=== PATIENT | female | born 1945 | race Caucasian/White ===

== ENCOUNTER → 2016-09-21 | Outpatient (CLI) | payer MEDICARE, OTHER ==
[2016-09-21 16:44] LABS: ABSOLUTE BASOPHILS # (AUTO) 0.1 10^3/uL (0.0-0.2); ABSOLUTE EOSINOPHILS # (AUTO) 0.4 10^3/uL (0.0-0.6); ABSOLUTE LYMPHOCYTES (AUTO) 2.6 10^3/uL (0.5-4.7); ABSOLUTE MONOCYTES (AUTO) 1.1 10^3/uL (0.1-1.4); ABSOLUTE NEUT (AUTO) 8.6 10^3/uL (1.7-8.2); BASOPHILS % (AUTO) 0.8 % (0-2); EOSINOPHILS % (AUTO) 3.4 % (0-6); HEMATOCRIT 40.7 % (36.0-47.0); HEMOGLOBIN 13.6 g/dL (12.0-15.5); HGB HCT DIFFERENCE 0.1; LYMPHOCYTES % (AUTO) 20.2 % (13-45); MEAN CORPUSCULAR HEMOGLOBIN 29.4 pg (27.0-33.4); MEAN CORPUSCULAR HGB CONC 33.4 g/dL (32.0-36.0); MEAN CORPUSCULAR VOLUME 88 fl (80-97); MONOCYTES % (AUTO) 8.3 % (3-13); RED BLOOD COUNT 4.63 10^6/uL (3.72-5.28); RED CELL DISTRIBUTION WIDTH 13.6 % (11.5-14.0); SEGMENTED NEUTROPHILS % (AUTO) 67.3 % (42-78); WHITE BLOOD COUNT 12.8 10^3/uL (4.0-10.5)
== END ==
LOC: OD 16:01
PROVIDERS: ATTEND Surgery
DX: K62.5 Hemorrhage of anus and rectum (principal)
CPT/HCPCS: 36415; 85025

== ENCOUNTER → 2016-10-07 | Outpatient (CLI) | payer MEDICARE, OTHER ==
[2016-10-07 13:10] LABS: ALANINE AMINOTRANSFERASE 19 U/L (9-52); ALBUMIN 3.7 g/dL (3.5-5.0); ALKALINE PHOSPHATASE 104 U/L (38-126); ANION GAP 7 (5-19); ASPARTATE AMINO TRANSFERASE 18 U/L (14-36); BILIRUBIN,TOTAL 0.6 mg/dL (0.2-1.3); BLOOD UREA NITROGEN 17 mg/dL (7-20); CALCIUM 10.8 mg/dL (8.4-10.2); CARBON DIOXIDE 27 mmol/L (22-30); CHLORIDE 105 mmol/L (98-107); CREATININE RESULT 0.66 mg/dL (0.52-1.25); GLUCOSE 84 mg/dL (75-110); POTASSIUM 4.4 mmol/L (3.6-5.0); SODIUM 139.1 mmol/L (137-145); TOTAL PROTEIN 6.5 g/dL (6.3-8.2)
[2016-10-07 13:39] LABS: CARCINOEMBRYONIC ANTIGEN 4.4 ng/mL (<3.0)
== END ==
LOC: OD 12:08
PROVIDERS: ATTEND Surgery
DX: K63.89 Other specified diseases of intestine (principal); Z85.3 Personal history of malignant neoplasm of breast
CPT/HCPCS: 36415; 80053; 82378

== ENCOUNTER → 2016-10-09 | Outpatient (CLI) | payer MEDICARE, OTHER | LOC: RAD 14:15 | PROVIDERS: ATTEND Surgery | DX: K63.89 Other specified diseases of intestine (principal); Z85.3 Personal history of malignant neoplasm of breast | CPT/HCPCS: 71020; 74177; 82565 ==

== ENCOUNTER 2016-10-20 07:13 | Inpatient (IN) | payer MEDICARE, OTHER ==
--- NOTE | 2016-10-19 18:09 | EKG REPORT ---
SEVERITY:- OTHERWISE NORMAL ECG - SINUS RHYTHM LEFT AXIS DEVIATION : Confirmed by: Darnell Pelayo MD 19-Oct-2016 18:08:39
[~2016-10-20 07:13] MED LIST: NORMAL SALINE 1000 ML 1,000 ML IV PRN; RINGERS SOLUTION,LACTATED 1,000 ML IV PRN
[2016-10-20] MEDS ORDERED: BUPIVACAINE HCL 0.25 % INJ/PF (2.5 MG/1 ML) 30 ML VIAL ONE (07:49)
[2016-10-20] MEDS ORDERED: METOCLOPRAMIDE HCL INJ/PF 10 MG/2 ML SDV ONE (09:58)
[2016-10-20] MEDS ORDERED: ONDANSETRON HCL INJ/PF 4 MG/2 ML SDV ONE (09:58)
[2016-10-20] MEDS ORDERED: ROCURONIUM BROMIDE INJ 50 MG/5 ML VIAL IV ONE (09:58)
[2016-10-20] MEDS ORDERED: LIDOCAINE 2% INJ-PF (20 MG/ML) 10 ML AMPUL ONE (09:58)
[2016-10-20] MEDS ORDERED: SUCCINYLCHOLINE CHLORIDE INJ 200 MG/10 ML VIAL ONE (09:58)
[2016-10-20] MEDS ORDERED: PHENYLEPHRINE HCL INJ/PF 10 MG/1 ML SDV ONE (09:58)
[2016-10-20] MEDS ORDERED: NEOSTIGMINE METHYLSULFATE 10 MG/10 ML VIAL ONE (09:58)
[2016-10-20] MEDS ORDERED: GLYCOPYRROLATE INJ 0.4 MG/2 ML VIAL ONE (09:58)
[2016-10-20] MEDS ORDERED: ERTAPENEM SODIUM 1 GM in NORMAL SALINE 50 ML IV ONE (12:00)
[2016-10-20] MEDS ORDERED: FENTANYL CITRATE INJ/PF 250 MCG/5 ML AMPULE ONE ×2 (14:23)
[2016-10-20] MEDS ORDERED: MIDAZOLAM 2 MG/2 ML INJ ONE (14:23)
[2016-10-20] MEDS ORDERED: ACETAMINOPHEN 100 ML IV ONE (14:24)
[2016-10-20] MEDS ORDERED: MORPHINE SULFATE 10 MG/ML INJ ONE (14:24)
[2016-10-20] MEDS ORDERED: PROPOFOL INJ 200 MG/20 ML VIAL IV ONE (14:24)
--- NOTE | 2016-10-20 17:36 | Operative Report ---
Operative Report DATE OF SURGERY: 10/20/16 PREOPERATIVE DIAGNOSIS: Splenic flexure obstructive tumor. POSTOPERATIVE DIAGNOSIS: Descending colon cancer OPERATION: Left colon and sigmoid colon resection with mobilization and resection of the splenic flexure with transverse colon to rectal end-to-end anastomosis SURGEON: POOL SIMS ANESTHESIA: GA TISSUE REMOVED OR ALTERED: Left colon and sigmoid colon COMPLICATIONS: None ESTIMATED BLOOD LOSS: 50 mL INTRAOPERATIVE FINDINGS: Large mass at the distal left colon PROCEDURE: Informed consent was obtained. Patient was brought to the operating room and placed on the operating room table in the supine position. After satisfactory induction of general anesthesia patient was placed in a low lithotomy position and her abdomen and perineum were prepped and draped in the usual sterile fashion. A midline abdominal incision was made dissection carried out through the fascia and the peritoneal cavity was entered without difficulty. A wound protractor was used during the case. Exploratory laparotomy was performed first the peritoneal surface felt smooth with no nodules. The liver felt smooth with no nodules. The stomach appeared normal anteriorly as did the first portion of the duodenum. The omentum appeared normal. The small bowel appeared normally was run from the ligament of Treitz down to the ileocecal junction. The right colon felt normal as did the transverse colon. At the distal descending colon near the junction to the sigmoid colon there was a palpable large mass with Karen ink marking this region. The sigmoid colon was markedly redundant. The left ovary felt calcified the right ovary was completely atrophied. The left colon was mobilized along the line of Toldt. The splenic flexure was completely mobilized. The distal half of the transverse colon was mobilized. The sigmoid colon was completely mobilized. The middle colic artery was identified. Vessel coming off left of the middle colic artery was taken by clamping dividing and tying but the the main middle colic artery was preserved during the dissection. The VINICIUS was taken at its origin by clamping dividing and tying. The entire mesentery of the left colon and the sigmoid colon was taken along with the specimen. The distal transverse colon was divided using a BUD stapling device. The upper rectum was the divided using a BUD stapling device. The meso rectum of the portion of the upper rectum that was taken along with the specimen was the taken by clamping and tying. The specimen was submitted to pathology who confirmed the location of the grossly apparent cancer at the distal left colon. Pulsations were seen at the the marginal vessel of the transverse colon end. Triphasic Doppler signals were heard at the upper rectal stump mesentery. The transverse colon end came down to the upper rectal stump easily with no tension. Head of size 33 EEA stapling device was then attached to the transverse colon using a pursestring device. A end-to-end anastomosis was then created between the transverse colon end and the the rectal stump. The anastomosis appeared secure. Airtight anastomosis was confirmed using the proctoscope. Both of the doughnuts were intact. Hemostasis appeared excellent. Sponge needle and instrument counts were all correct. Fascia was closed with running PDS suture. Skin was closed with yessy. Marcaine was injected at the operative site. Patient tolerated procedure well with no apparent complications and was taken to the recovery area in stable condition.
[2016-10-20] MEDS ORDERED: PHARMACY COMMUNICATION ORDER MC NR (17:45)
[2016-10-20] MEDS: MORPHINE SULFATE 10 MG/ML INJ IV PRN (20:30)
[2016-10-20] MEDS: DEXTROSE 5%-1/2 NORMAL SALINE 1,000 ML IV PRN (20:33)
[2016-10-21] MEDS: ONDANSETRON HCL INJ/PF 4 MG/2 ML SDV IV PRN ×2 (00:06→10:24)
[2016-10-21] MEDS: MORPHINE SULFATE 10 MG/ML INJ IV PRN ×2 (04:28→08:25)
[2016-10-21] MEDS: LANSOPRAZOLE 30 MG TAB.RAP.DR NG SCH ×2 (06:33→17:46)
[2016-10-21 06:51] LABS: HEMATOCRIT 36.9 % (36.0-47.0); HEMOGLOBIN 11.8 g/dL (12.0-15.5); HGB HCT DIFFERENCE -1.5; MEAN CORPUSCULAR HEMOGLOBIN 28.5 pg (27.0-33.4); MEAN CORPUSCULAR VOLUME 89 fl (80-97); RED BLOOD COUNT 4.15 10^6/uL (3.72-5.28); RED CELL DISTRIBUTION WIDTH 13.7 % (11.5-14.0); WHITE BLOOD COUNT 21.5 10^3/uL (4.0-10.5)
[2016-10-21 07:09] LABS: ANION GAP 7 (5-19); BLOOD UREA NITROGEN 15 mg/dL (7-20); CALCIUM 9.4 mg/dL (8.4-10.2); CARBON DIOXIDE 24 mmol/L (22-30); CHLORIDE 104 mmol/L (98-107); CREATININE RESULT 0.57 mg/dL (0.52-1.25); GLUCOSE 156 mg/dL (75-110); SODIUM 134.6 mmol/L (137-145)
[2016-10-21] MEDS: DEXTROSE 5%-1/2 NORMAL SALINE 1,000 ML IV PRN ×2 (07:19→18:10)
[2016-10-21] MEDS: ENOXAPARIN SODIUM INJ 30 MG/0.3 ML DISP.SYRIN SUBCUT SCH (08:29)
--- NOTE | 2016-10-21 09:09 | PDOC PROGRESS REPORT ---
Subjective Progress Note for:: 10/21/16 Subjective:: feels ok. Physical Exam Vital Signs: Temp Pulse Resp BP Pulse Ox 98.4 F 81 20 128/57 H 98 10/21/16 07:11 10/21/16 07:11 10/21/16 07:11 10/21/16 07:11 10/21/16 07:11 Intake & Output 10/20/16 10/21/16 10/22/16 06:59 06:59 06:59 Intake Total 7058 Output Total 3145 Balance 3913 General appearance: PRESENT: no acute distress Respiratory exam: PRESENT: clear to auscultation brett Cardiovascular exam: PRESENT: RRR GI/Abdominal exam: PRESENT: other - soft, nd, mild diffuse tenderness without peritoneal signs. ng minimal output. mostly amount she took in ice chips. Extremities exam: PRESENT: other - no swelling, no tenderness Results Laboratory Results: 10/21/16 06:06 10/21/16 06:06 10/21/16 10/21/16 06:06 06:06 WBC 21.5 H RBC 4.15 Hgb 11.8 L Hct 36.9 MCV 89 MCH 28.5 MCHC 32.0 RDW 13.7 Plt Count 236 Sodium 134.6 L Potassium 4.0 Chloride 104 Carbon Dioxide 24 Anion Gap 7 BUN 15 Creatinine 0.57 Est GFR ( Amer) > 60 Est GFR (Non-Af Amer) > 60 Glucose 156 H Calcium 9.4 Assessment & Plan - Diagnosis (1) Colon cancer Qualifiers: Colon location: descending Qualified Code(s): C18.6 - Malignant neoplasm of descending colon Is this a current diagnosis for this admission?: YesPlan: s/p left and sigmoid colon resection. looks good despite elevated wbc. d/c ng. d /c doherty. pt refused lovenox. pt promises to ambulate as much as possible today.
[2016-10-21] MEDS: KETOROLAC TROMETHAMINE INJ/PF 30 MG/1 ML SDV IV PRN (13:38)
--- NOTE | 2016-10-21 17:28 | PDOC PROGRESS REPORT ---
Subjective Progress Note for:: 10/21/16 Subjective:: Feels well. Ambulated well. Less abdominal pain. Physical Exam Vital Signs: Temp Pulse Resp BP Pulse Ox 98.1 F 86 18 103/48 L 95 10/21/16 15:06 10/21/16 15:06 10/21/16 15:06 10/21/16 15:06 10/21/16 15:06 Intake & Output 10/20/16 10/21/16 10/22/16 06:59 06:59 06:59 Intake Total 7058 Output Total 3145 Balance 3913 General appearance: PRESENT: no acute distress Respiratory exam: PRESENT: clear to auscultation brett Cardiovascular exam: PRESENT: RRR GI/Abdominal exam: PRESENT: other - Soft, nondistended, less tender this afternoon. Extremities exam: PRESENT: other - No swelling no tenderness. Results Laboratory Results: 10/21/16 06:06 10/21/16 06:06 10/21/16 10/21/16 06:06 06:06 WBC 21.5 H RBC 4.15 Hgb 11.8 L Hct 36.9 MCV 89 MCH 28.5 MCHC 32.0 RDW 13.7 Plt Count 236 Sodium 134.6 L Potassium 4.0 Chloride 104 Carbon Dioxide 24 Anion Gap 7 BUN 15 Creatinine 0.57 Est GFR ( Amer) > 60 Est GFR (Non-Af Amer) > 60 Glucose 156 H Calcium 9.4 Assessment & Plan - Diagnosis (1) Colon cancer Qualifiers: Colon location: descending Qualified Code(s): C18.6 - Malignant neoplasm of descending colon Is this a current diagnosis for this admission?: YesPlan: s/p left and sigmoid colon resection. Looks good. Await bowel function.
[2016-10-22] MEDS: KETOROLAC TROMETHAMINE INJ/PF 30 MG/1 ML SDV IV PRN ×3 (00:03→15:50)
[2016-10-22] MEDS: LANSOPRAZOLE 30 MG TAB.RAP.DR NG SCH ×2 (05:13→17:57)
[2016-10-22] MEDS: DEXTROSE 5%-1/2 NORMAL SALINE 1,000 ML IV PRN (05:14)
[2016-10-22 06:36] LABS: ABSOLUTE EOSINOPHILS # (AUTO) 0.1 10^3/uL (0.0-0.6); ABSOLUTE LYMPHOCYTES (AUTO) 1.9 10^3/uL (0.5-4.7); ABSOLUTE MONOCYTES (AUTO) 0.9 10^3/uL (0.1-1.4); ABSOLUTE NEUT (AUTO) 10.1 10^3/uL (1.7-8.2); BASOPHILS % (AUTO) 0.2 % (0-2); EOSINOPHILS % (AUTO) 0.8 % (0-6); HEMATOCRIT 33.3 % (36.0-47.0); HEMOGLOBIN 10.9 g/dL (12.0-15.5); HGB HCT DIFFERENCE -0.6; LYMPHOCYTES % (AUTO) 14.6 % (13-45); MEAN CORPUSCULAR HEMOGLOBIN 28.8 pg (27.0-33.4); MEAN CORPUSCULAR HGB CONC 32.8 g/dL (32.0-36.0); MEAN CORPUSCULAR VOLUME 88 fl (80-97); MONOCYTES % (AUTO) 7.1 % (3-13); RED BLOOD COUNT 3.79 10^6/uL (3.72-5.28); RED CELL DISTRIBUTION WIDTH 13.2 % (11.5-14.0); SEGMENTED NEUTROPHILS % (AUTO) 77.3 % (42-78)
[2016-10-22 06:49] LABS: ANION GAP 5 (5-19); BLOOD UREA NITROGEN 8 mg/dL (7-20); CALCIUM 9.9 mg/dL (8.4-10.2); CARBON DIOXIDE 27 mmol/L (22-30); CHLORIDE 106 mmol/L (98-107); CREATININE RESULT 0.61 mg/dL (0.52-1.25); GLUCOSE 107 mg/dL (75-110); POTASSIUM 4.2 mmol/L (3.6-5.0); SODIUM 137.6 mmol/L (137-145)
[2016-10-22] MEDS: ENOXAPARIN SODIUM INJ 30 MG/0.3 ML DISP.SYRIN SUBCUT SCH (08:54)
--- NOTE | 2016-10-22 10:17 | PDOC PROGRESS REPORT ---
Subjective Progress Note for:: 10/22/16 Subjective:: Feels well. No complaints. Physical Exam Vital Signs: Temp Pulse Resp BP Pulse Ox 98.5 F 93 16 126/52 H 94 10/22/16 07:51 10/22/16 07:51 10/22/16 07:51 10/22/16 07:51 10/22/16 07:51 Intake & Output 10/21/16 10/22/16 10/23/16 06:59 06:59 06:59 Intake Total 7058 2400 Output Total 3145 500 Balance 3913 1900 Weight 54.6 kg General appearance: PRESENT: no acute distress Respiratory exam: PRESENT: clear to auscultation brett Cardiovascular exam: PRESENT: RRR GI/Abdominal exam: PRESENT: other - Off, nondistended, mild tenderness along the incision. No erythema. Clean dry and intact. Extremities exam: PRESENT: other - No swelling and no tenderness Results Laboratory Results: 10/22/16 06:20 10/22/16 06:20 10/22/16 10/22/16 06:20 06:20 WBC 13.0 H RBC 3.79 Hgb 10.9 L Hct 33.3 L MCV 88 MCH 28.8 MCHC 32.8 RDW 13.2 Plt Count 218 Seg Neutrophils % 77.3 Lymphocytes % 14.6 Monocytes % 7.1 Eosinophils % 0.8 Basophils % 0.2 Absolute Neutrophils 10.1 H Absolute Lymphocytes 1.9 Absolute Monocytes 0.9 Absolute Eosinophils 0.1 Absolute Basophils 0.0 Sodium 137.6 Potassium 4.2 Chloride 106 Carbon Dioxide 27 Anion Gap 5 BUN 8 Creatinine 0.61 Est GFR ( Amer) > 60 Est GFR (Non-Af Amer) > 60 Glucose 107 Calcium 9.9 Assessment & Plan - Diagnosis (1) Colon cancer Qualifiers: Colon location: descending Qualified Code(s): C18.6 - Malignant neoplasm of descending colon Is this a current diagnosis for this admission?: YesPlan: s/p left and sigmoid colon resection. Looks good. Await bowel function. Hematocrit has drifted down slightly. The patient voiding well. Stable vital signs. Will repeat the CBC tomorrow.
[2016-10-23] MEDS: KETOROLAC TROMETHAMINE INJ/PF 30 MG/1 ML SDV IV PRN ×3 (00:23→17:08)
[2016-10-23] MEDS: DEXTROSE 5%-1/2 NORMAL SALINE 1,000 ML IV PRN (04:47)
[2016-10-23] MEDS: LANSOPRAZOLE 30 MG TAB.RAP.DR NG SCH (06:12)
--- NOTE | 2016-10-23 07:34 | PDOC PROGRESS REPORT ---
Subjective Progress Note for:: 10/23/16 Subjective:: Feels well. Passing gas. Physical Exam Vital Signs: Temp Pulse Resp BP Pulse Ox 99.4 F 87 16 135/62 H 96 10/23/16 00:11 10/23/16 00:11 10/23/16 00:11 10/23/16 00:11 10/23/16 00:11 Intake & Output 10/22/16 10/23/16 10/24/16 06:59 06:59 06:59 Intake Total 2400 2400 Output Total 500 900 Balance 1900 1500 Weight 54.6 kg 56.5 kg General appearance: PRESENT: no acute distress Respiratory exam: PRESENT: clear to auscultation brett Cardiovascular exam: PRESENT: RRR GI/Abdominal exam: PRESENT: other - Soft, nondistended, minimal tenderness. Wound clean dry and intact. Extremities exam: PRESENT: other - No swelling no tenderness. Results Laboratory Results: 10/22/16 06:20 10/22/16 06:20 Assessment & Plan - Diagnosis (1) Colon cancer Qualifiers: Colon location: descending Qualified Code(s): C18.6 - Malignant neoplasm of descending colon Is this a current diagnosis for this admission?: YesPlan: Patient doing well. Passing gas. Will start clear liquids. Advance diet as tolerated. Possible discharge tomorrow.
[2016-10-23 07:46] LABS: HEMATOCRIT 33.4 % (36.0-47.0); HGB HCT DIFFERENCE -0.4; MEAN CORPUSCULAR HEMOGLOBIN 29.1 pg (27.0-33.4); MEAN CORPUSCULAR HGB CONC 32.9 g/dL (32.0-36.0); MEAN CORPUSCULAR VOLUME 89 fl (80-97); RED BLOOD COUNT 3.77 10^6/uL (3.72-5.28); WHITE BLOOD COUNT 10.6 10^3/uL (4.0-10.5)
--- NOTE | 2016-10-23 09:03 | PDOC PROGRESS REPORT ---
Subjective Progress Note for:: 10/23/16 Subjective:: passed flatus , minimal pain Physical Exam Vital Signs: Temp Pulse Resp BP Pulse Ox 99.2 F 65 18 120/51 L 95 10/23/16 07:21 10/23/16 07:21 10/23/16 07:21 10/23/16 07:21 10/23/16 07:21 Intake & Output 10/22/16 10/23/16 10/24/16 06:59 06:59 06:59 Intake Total 2400 2400 Output Total 500 900 Balance 1900 1500 Weight 54.6 kg 56.5 kg GI/Abdominal exam: PRESENT: ascites, diminished bowel sounds, distended, firm, guarding, hernia, hyperactive bowel sounds, hypoactive bowel sounds, mass, Puente's sign, normal bowel sounds, organolmegaly, rebound, rigid, soft, tenderness, other - Abdomen soft, incision clean Results Laboratory Results: 10/23/16 06:36 10/22/16 06:20 10/23/16 06:36 WBC 10.6 H RBC 3.77 Hgb 11.0 L Hct 33.4 L MCV 89 MCH 29.1 MCHC 32.9 RDW 13.0 Plt Count 213 Assessment & Plan - Plan Summary Plan Summary: Ileus resolving Advance diet as tolerated.
[2016-10-23] MEDS: LANSOPRAZOLE 30 MG TAB.RAP.DR PO SCH (17:10)
[2016-10-24] MEDS: KETOROLAC TROMETHAMINE INJ/PF 30 MG/1 ML SDV IV PRN ×3 (03:01→20:59)
[2016-10-24 06:41] LABS: HEMATOCRIT 32.8 % (36.0-47.0); HEMOGLOBIN 10.9 g/dL (12.0-15.5); HGB HCT DIFFERENCE -0.1; MEAN CORPUSCULAR HEMOGLOBIN 29.2 pg (27.0-33.4); MEAN CORPUSCULAR HGB CONC 33.1 g/dL (32.0-36.0); MEAN CORPUSCULAR VOLUME 88 fl (80-97); RED BLOOD COUNT 3.72 10^6/uL (3.72-5.28); RED CELL DISTRIBUTION WIDTH 12.9 % (11.5-14.0); WHITE BLOOD COUNT 10.4 10^3/uL (4.0-10.5)
[2016-10-24] MEDS: LANSOPRAZOLE 30 MG TAB.RAP.DR PO SCH ×2 (06:48→16:53)
[2016-10-24 06:52] LABS: ANION GAP 6 (5-19); BLOOD UREA NITROGEN 6 mg/dL (7-20); CALCIUM 10.5 mg/dL (8.4-10.2); CARBON DIOXIDE 26 mmol/L (22-30); CHLORIDE 107 mmol/L (98-107); CREATININE RESULT 0.62 mg/dL (0.52-1.25); GLUCOSE 84 mg/dL (75-110); POTASSIUM 3.6 mmol/L (3.6-5.0); SODIUM 139.2 mmol/L (137-145)
--- NOTE | 2016-10-24 15:41 | PDOC PROGRESS REPORT ---
Subjective Subjective:: had small bm Physical Exam Vital Signs: Temp Pulse Resp BP Pulse Ox 99.3 F 97 20 129/64 H 97 10/24/16 11:38 10/24/16 11:38 10/24/16 11:38 10/24/16 11:38 10/24/16 11:38 Intake & Output 10/23/16 10/24/16 10/25/16 06:59 06:59 06:59 Intake Total 2400 1100 Output Total 900 Balance 1500 1100 Weight 56.5 kg 57.7 kg GI/Abdominal exam: PRESENT: ascites, diminished bowel sounds - Abdomen - mildly distended soft , nontender, distended, firm, guarding, hernia, hyperactive bowel sounds, hypoactive bowel sounds, mass, Puente's sign, normal bowel sounds , organolmegaly, rebound, rigid, soft, tenderness, other Results Laboratory Results: 10/24/16 06:04 10/24/16 06:04 10/24/16 10/24/16 06:04 06:04 WBC 10.4 RBC 3.72 Hgb 10.9 L Hct 32.8 L MCV 88 MCH 29.2 MCHC 33.1 RDW 12.9 Plt Count 223 Sodium 139.2 Potassium 3.6 Chloride 107 Carbon Dioxide 26 Anion Gap 6 BUN 6 L Creatinine 0.62 Est GFR ( Amer) > 60 Est GFR (Non-Af Amer) > 60 Glucose 84 Calcium 10.5 H Assessment & Plan - Plan Summary Plan Summary: S/P Left colon resection, ileus resolving, still has distention monitor today
[2016-10-25 06:26] LABS: ABSOLUTE BASOPHILS # (AUTO) 0.1 10^3/uL (0.0-0.2); ABSOLUTE EOSINOPHILS # (AUTO) 0.9 10^3/uL (0.0-0.6); ABSOLUTE LYMPHOCYTES (AUTO) 1.8 10^3/uL (0.5-4.7); ABSOLUTE MONOCYTES (AUTO) 0.7 10^3/uL (0.1-1.4); ABSOLUTE NEUT (AUTO) 6.9 10^3/uL (1.7-8.2); EOSINOPHILS % (AUTO) 8.7 % (0-6); LYMPHOCYTES % (AUTO) 16.9 % (13-45); MEAN CORPUSCULAR HEMOGLOBIN 28.5 pg (27.0-33.4); MEAN CORPUSCULAR HGB CONC 32.3 g/dL (32.0-36.0); MEAN CORPUSCULAR VOLUME 88 fl (80-97); RED BLOOD COUNT 3.86 10^6/uL (3.72-5.28); RED CELL DISTRIBUTION WIDTH 13.2 % (11.5-14.0); SEGMENTED NEUTROPHILS % (AUTO) 66.4 % (42-78); WHITE BLOOD COUNT 10.3 10^3/uL (4.0-10.5)
[2016-10-25] MEDS: LANSOPRAZOLE 30 MG TAB.RAP.DR PO SCH (06:33)
[2016-10-25 06:53] LABS: ANION GAP 9 (5-19); BLOOD UREA NITROGEN 13 mg/dL (7-20); CALCIUM 10.4 mg/dL (8.4-10.2); CARBON DIOXIDE 26 mmol/L (22-30); CHLORIDE 104 mmol/L (98-107); CREATININE RESULT 0.67 mg/dL (0.52-1.25); GLUCOSE 127 mg/dL (75-110); POTASSIUM 3.5 mmol/L (3.6-5.0); SODIUM 138.7 mmol/L (137-145)
[2016-10-25] MEDS: KETOROLAC TROMETHAMINE INJ/PF 30 MG/1 ML SDV IV PRN (08:43)
[2016-10-25 13:48] VITALS: BP 107/53
--- NOTE | 2016-10-25 17:03 | DISCHARGE SUMMARY E ---
Discharge Summary NAME: SONA WORLEY : 1945 AGE: 70Y ADMITTED: 10/20/2016 DISCHARGED: 10/25/2016 ADMITTING DIAGNOSIS: Carcinoma of the descending colon. DISCHARGE DIAGNOSIS: Carcinoma of the descending colon. OPERATION: Open left colon resection postoperative day prior today. Postoperatively, she was doing very well for the last 2 days, passed flatus and then bowel movement. Now tolerating diet and afebrile. Her lab work is normal. Abdominal examination is soft and nontender. She has done very well with her recovery so she will be discharged home today. FOLLOW-UP PLAN: Outpatient [facility] in 2 weeks. DISCHARGE MEDICATIONS: 1. Hydrocodone for pain. 2. Stool softener. She was given instructions to call the office if there is any emergency or to come to the Emergency Room in case of any emergency. DICTATING PHYSICIAN: ARJUN SHARMA M.D. [id number] PHY#: [id number] ID: [id number] JOB#: [id number] ACCT: [id number] cc:Danny HERNANDEZ M.D. >
== END 2016-10-25 15:18 | disposition home or self-care (01) | DRG 331 ==
LOC: INOR 10:09 → 3S 18:46 → 4S 10-21 21:10
PROVIDERS: ADMIT Surgery; ATTEND Surgery
PROC: 0DTG0ZZ Resection of Left Large Intestine, Open Approach (ICD-10-PCS; principal; 2016-10-20 12:30)
DX: C18.6 Malignant neoplasm of descending colon (principal); F17.210 Nicotine dependence, cigarettes, uncomplicated; Z90.11 Acquired absence of right breast and nipple
CPT/HCPCS: 36415; 80048; 840; 85025; 85027; 86850; 86900; 86901; 88307; 93005; 93010; 88329; J0131; J0330; J1335; J1885; J2250; J2270; J2370; J2405; J2704; J2765; J3010; J3490

== ENCOUNTER 2018-05-12 09:07 | Day surgery (SDC) | payer MEDICARE, OTHER ==
[~2018-05-12 09:07] MED LIST changes: +KETOROLAC TROMETHAMINE 0.45% 4 DROP/0.4 ML DROPERETTE OD PRN; -NORMAL SALINE 1000 ML 1,000 ML IV PRN; -RINGERS SOLUTION,LACTATED 1,000 ML IV PRN
[2018-05-12] MEDS: TETRACAINE HCL 0.5% OPH SOLN 2 ML OD PRN ×4 (09:21→10:16)
[2018-05-12] MEDS: CYCLOPENTOLATE 0.2%/PHENYLEPHRINE 1% OPH SOLN 2 ML OD PRN ×3 (09:31→09:58)
[2018-05-12] MEDS: TROPICAMIDE 1% OPH SOLN 3 ML OD PRN ×3 (09:31→09:58)
[2018-05-12] MEDS: BESIFLOXACIN HCL 0.6% OPH SUSP 5 ML BOTTLE OD PRN ×4 (09:32→10:44)
[2018-05-12] MEDS: CHONDR SU A NA/HYALUR INTRAOC KIT (SURGICARE) ONE ×3 (09:33→10:31)
[2018-05-12] MEDS: LIDOCAINE 1% INJ-PF (10 MG/ML) 30 ML SDV ONE ×3 (09:33→10:31)
[2018-05-12] MEDS: EPINEPHRINE INJ/PF 1 MG/1 ML AMPULE ONE ×3 (09:33→10:31)
[2018-05-12] MEDS ORDERED: MIDAZOLAM 2 MG/2 ML INJ ONE (10:09)
[2018-05-12] MEDS ORDERED: FENTANYL CITRATE INJ/PF 100 MCG/2 ML AMPUL ONE (10:09)
--- NOTE | 2018-05-12 17:26 | [facility] OPERATIVE REPORT E ---
[facility] Operative Report NAME: SONA WORLEY AGE: 72Y DATE OF SURGERY: 05/12/2018 ROOM: PREOPERATIVE DIAGNOSIS: Cataract, right eye. POSTOPERATIVE DIAGNOSIS: Cataract, right eye. OPERATION: Cataract extraction with insertion of an IOL of the right eye. SURGEON: KENNEDI CASANOVA M.D. ANESTHESIA: Topical. PROCEDURE: After obtaining appropriate consent, the patient's right eye was prepped and draped in sterile fashion as well as the surgeon in a sterile manner and cataract surgery was started. First a paracentesis blade was used to make a side-port incision. Viscoelastic was used to inflate the anterior chamber. Next a 2.4 mm incision was made with a 2.4 mm blade, clear corneal temporally. A continuous capsulorrhexis was made using a cystotome and Utrata forceps. Following this hydrodissection was carried out to make the lens fully loose and mobile and it was rotated 90 degrees. Following this, a huntou-otm-exyiqoa technique was used to phacoemulsify the lens with a CDE of 21.96. The remaining cortex was removed with irrigation/aspiration. Provisc was instilled into the capsular bag to inflate the bag. A SN60WF, 28.0 diopter lens was placed. The remaining viscoelastic material was removed with irrigation/aspiration. Following this, the incision was found to be watertight. Besivance was instilled into the eye and a protective shield was placed over the eye. The patient returned to the postoperative recovery in stable condition. DICTATING PHYSICIAN: KENNEDI CASANOVA M.D. [id number] PHY#: [id number] ID: [id number] JOB#: [id number] ACCT: [id number] cc:KENNEDI CASANOVA M.D. >
--- NOTE | 2018-05-12 17:27 | DISCHARGE SUMMARY E ---
Discharge Summary NAME: SONA WORLEY : 1945 AGE: 72Y ADMITTED: 05/12/2018 DISCHARGED: 05/12/2018 REASON FOR ADMISSION: This is a 72-year-old female who underwent cataract extraction of the right eye. DIAGNOSIS: Cataract, right eye. HOSPITAL COURSE: She underwent surgery because she has difficulty seeing the television and crocheting. She should be on a regular diet. No bending at her waist. No heavy lifting. She should use her Besivance, Ilevro, and Durezol at 3:00 p.m. and 8:00 p.m. and sleep with a rigid shield, and I will see her for a 1-day postoperative tomorrow. DICTATING PHYSICIAN: KENNEDI CASANOVA M.D. [id number] PHY#: [id number] ID: [id number] JOB#: [id number] ACCT: [id number] cc:KENNEDI CASANOVA M.D. >
== END 2018-05-12 11:28 | disposition home or self-care (01) ==
LOC: SC 09:07
PROVIDERS: ATTEND Internal Medicine
DX: H25.811 Combined forms of age-related cataract, right eye (principal); F17.210 Nicotine dependence, cigarettes, uncomplicated
CPT/HCPCS: 66984; V2632; J2250; J3490 ×2; A9270; J0171; J3010; 142

== ENCOUNTER 2018-06-16 07:25 | Day surgery (SDC) | payer MEDICARE, MEDICAID ==
[~2018-06-16 07:25] MED LIST changes: +CHONDR SU A NA/HYALUR INTRAOC KIT (SURGICARE) ONE; +EPINEPHRINE INJ/PF 1 MG/1 ML AMPULE ONE; -KETOROLAC TROMETHAMINE 0.45% 4 DROP/0.4 ML DROPERETTE OD PRN; +KETOROLAC TROMETHAMINE 0.45% 4 DROP/0.4 ML DROPERETTE OS PRN; +LIDOCAINE 1% INJ-PF (10 MG/ML) 30 ML SDV ONE
[2018-06-16] MEDS: CYCLOPENTOLATE 0.2%/PHENYLEPHRINE 1% OPH SOLN 2 ML OS PRN ×3 (07:44→08:04)
[2018-06-16] MEDS: TROPICAMIDE 1% OPH SOLN 3 ML OS PRN ×3 (07:44→08:04)
[2018-06-16] MEDS: BESIFLOXACIN HCL 0.6% OPH SUSP 5 ML BOTTLE OS PRN ×3 (07:44→08:43)
[2018-06-16] MEDS: TETRACAINE HCL 0.5% OPH SOLN 4 ML OS PRN ×3 (07:45→08:21)
[2018-06-16] MEDS ORDERED: MIDAZOLAM 2 MG/2 ML INJ ONE (08:01)
[2018-06-16] MEDS ORDERED: TOBRAMYCIN SULFATE/DEXAMETH OPH OINTMENT 3.5 GM ONE (08:31)
--- NOTE | 2018-06-16 19:21 | [facility] OPERATIVE REPORT E ---
[facility] Operative Report NAME: SONA WROLEY AGE: 72Y DATE OF SURGERY: 06/16/2018 ROOM: PREOPERATIVE DIAGNOSIS: CATARACT, LEFT EYE. POSTOPERATIVE DIAGNOSIS: CATARACT, LEFT EYE. OPERATION: Cataract extraction with insertion of an IOL of the left eye. SURGEON: KENNEDI CASANOVA M.D. ANESTHESIA: Topical. PROCEDURE: After obtaining appropriate consent, the patient's left eye was prepped and draped in sterile fashion as well as the surgeon in a sterile manner and cataract surgery was started. First a paracentesis blade was used to make a side-port incision. Viscoelastic was used to inflate the anterior chamber. Next a 2.4 mm incision was made with a 2.4 mm blade, clear corneal temporally. A continuous capsulorrhexis was made using a cystotome and Utrata forceps. Following this hydrodissection was carried out to make the lens fully loose and mobile and it was rotated 90 degrees. Following this, a wwngox-esn-gaqodli technique was used to phacoemulsify the lens with a CDE of 12.59. The remaining cortex was removed with irrigation/aspiration. Provisc was instilled into the capsular bag to inflate the bag. A SN60WF, 26.5 diopter lens was placed. The remaining viscoelastic material was removed with irrigation/aspiration. Following this, the incision was found to be watertight. Besivance was instilled into the eye and a protective shield was placed over the eye. The patient returned to the postoperative recovery in stable condition. DICTATING PHYSICIAN: KENNEDI CASANOVA M.D. [id number] PHY#: [id number] ID: [id number] JOB#: [id number] ACCT: [id number] cc:KENNEDI CASANOVA M.D. >
--- NOTE | 2018-06-16 19:27 | [facility] DISCHARGE SUMMARY E ---
[facility] Discharge Summary NAME: SONA WORLEY AGE: 72Y ADMITTED: 06/16/2018 DISCHARGED: 06/16/2018 HOSPITAL COURSE: This is a 72-year-old female who underwent cataract extraction of the left eye. DIAGNOSIS: CATARACT, LEFT EYE. She underwent surgery because she was having imbalance between the eyes since having her surgery on her left. DISCHARGE INSTRUCTIONS: She should be on a regular diet. No bending at her waist, no heavy lifting. She should use her Besivance, Ilevro, and Durezol at 3 p.m. and 8 p.m. and sleep with a rigid shield. I will see her for her 1 day postoperative tomorrow. DICTATING PHYSICIAN: KENNEDI CASANOVA M.D. [id number] PHY#: [id number] ID: [id number] JOB#: [id number] ACCT: [id number] cc:KENNEDI CASANOVA M.D. >
== END 2018-06-16 09:26 | disposition home or self-care (01) ==
LOC: SC 07:25
PROVIDERS: ATTEND Internal Medicine
DX: H25.812 Combined forms of age-related cataract, left eye (principal); Z96.1 Presence of intraocular lens
CPT/HCPCS: 66984; V2632; J2250; J3490 ×4; A9270; J0171; 142

== ENCOUNTER → 2019-02-07 | Outpatient (CLI) | payer MEDICARE ==
--- NOTE | 2019-02-07 16:03 | RADIOLOGY REPORT (SQ) ---
EXAM DESCRIPTION: HIP RIGHT AP/LATERAL COMPLETED DATE/TIME: 02/07/2019 2:32 pm REASON FOR STUDY: PAIN IN R HIP M25.551 PAIN IN RIGHT HIP COMPARISON: CT abdomen pelvis 10/09/2016 NUMBER OF VIEWS: Two views. TECHNIQUE: AP pelvis and additional frog-leg view of the right hip. LIMITATIONS: None. FINDINGS: MINERALIZATION: Osteopenic RIGHT HIP: No fracture or dislocation. No worrisome bone lesions. LEFT HIP: No fracture or dislocation. No worrisome bone lesions. PUBIS AND ISCHIUM: No fracture. PELVIS: No fracture. SACRUM: No fracture or dislocation. No worrisome bone lesions. LOWER LUMBAR SPINE: Not in the field of view SOFT TISSUES: Bowel anastomotic yessy in the presacral region OTHER: No other significant finding. IMPRESSION: No acute fracture TECHNICAL DOCUMENTATION: JOB ID: [id number] [employer]- All Rights Reserved Reading location - IP/workstation name: [email or web address]
== END ==
LOC: RAD 14:16
PROVIDERS: ATTEND Internal Medicine
DX: I73.9 Peripheral vascular disease, unspecified (principal); M25.551 Pain in right hip

== ENCOUNTER → 2019-02-14 | Outpatient (CLI) | payer MEDICARE, MEDICAID ==
--- NOTE | 2019-02-16 01:07 | XCELERA REPORT ---
[address] [address] Lower Extremity Arterial Evaluation Name: SONA WORLEY Age: 73 yrs Gender: Female : 1945 Patient Status: Outpatient Patient Location: Study Date: 02/14/2019 11:14 AM Procedure: A color flow and duplex scan of the lower extremity arteries was performed bilaterally with velocity and waveform anaylsis. Ankle brachial indicies performed. Reason For Study: PVD Ordering Physician: LOREE CARPENTER Performed By: Desiree Tubbs Measurements and Calculations Right Left GRASSROOTS ORGANIZER PSV 143.0 111.9 cm/sec Prox PFA PSV 100.4 -59.8 cm/sec Prox Pop A PSV 53.0 37.0 cm/sec Mid MACKENZIE PSV 48.7 56.9 cm/sec Mid ORACLE DEVELOPER PSV 73.1 73.7 cm/sec Sixto Pedis PSV -35.2 40.7 cm/sec Right Side Arterial Evaluation Normal velocity and triphasic waveforms noted from the Common Femoral artery to the Posterior Tibial artery . Biphasic with normal velocity in the Anterior Tibial and similarly with low velocity in the Dorsalis Pedis arteries. Ankle Brachial index 1.06. Left Side Arterial Evaluation Normal velocity and triphasic waveforms noted from the Common Femoral artery to the Posterior Tibial artery . Biphasic with normal velocity in the Anterior Tibial and similarly with low velocity in the Dorsalis Pedis arteries. Ankle Brachial index 1.08. Interpretation Summary Mild hemodynamically significant lesions in the bilateral lower extremities, on duplex imaging, at rest. Very slight indication of disease in the Anterior Tibial arteries only. ZURI's are completely normal suggesting no arterial compromise. : LOREE CARPENTER > Edwar Reynolds
== END ==
LOC: SP 10:50
PROVIDERS: ATTEND Internal Medicine
DX: I73.9 Peripheral vascular disease, unspecified (principal)
CPT/HCPCS: 93925

== ENCOUNTER 2019-02-20 12:53 | Observation (INO) | payer MEDICARE, MEDICAID ==
--- NOTE | 2019-02-20 13:36 | ER Document Report ---
ED Medical Screen (RME) - General Chief Complaint: Numbness of Arm Stated Complaint: LEFT ARM/FINGERS NUMBNESS Time Seen by Provider: 02/20/19 13:22 Primary Care Provider: LOREE CARPENTER MD [Primary Care Provider] - Follow up as needed TRAVEL OUTSIDE OF THE [place] IN LAST 30 DAYS: No - HPI Notes: 02/20/19 13:32 Patient is a 73-year-old female with a history of mastectomy who currently is not on any medicines presents complaining of an incident of having left arm numbness and weakness that occurred here in the hospital about 12:45 PM. Patient has also had associated frontal head pressure that is still present. Patient states that her symptoms all began at 11 AM and she started feeling a weird sensation to her arm and having pressure in her head. Patient states that her arm symptoms have since greatly improved although she still feels a little tingling sensation. Patient states that she did have an incident a couple weeks ago where she was stumbling when she was ambulating and had weakness to the left arm, but none of those symptoms persisted. She is not on any blood thinning medications. Denies drug allergies. Denies any fever, head injury, neck pain, changes in vision/speech/mentation/hearing, URI, sore throat, chest pain, palpitations, syncope, cough, shortness of breath, wheeze, dyspnea, abdominal pain, nausea/vomiting/diarrhea, urinary retention, dysuria, hematuria, loss of control of bowel or bladder, or rash. I have treated and performed a rapid initial assessment of this patient. A comprehensive ED assessment and evaluation of the patient, analysis of test results and completion of medical decision making process will be conducted by additional ED providers. PHYSICAL EXAMINATION: GENERAL: Well-appearing, well-nourished and in no acute distress. A&Ox4. Answers questions appropriately. HEAD: Atraumatic, normocephalic. Non-tender. EYES: Pupils equal round and reactive to light, extraocular movements intact, sclera anicteric, conjunctiva are normal. No nystagmus. ENT: EAC clear b/l. TM's intact b/l without erythema, fluid, or perforation. Nares patent and without discharge. oropharynx clear without exudates. No tonsilar hypertrophy or erythema. Moist mucous membranes. NECK: Normal range of motion, supple without lymphadenopathy. No rigidity/meningismus. No midline tenderness. LUNGS: Breath sounds clear to auscultation bilaterally and equal. No wheezes rales or rhonchi. HEART: Regular rate and rhythm without murmurs, rubs, gallops. Musculoskeletal: Ext's b/l: FROM to passive/active. Strength 5+/5 to b/l extremities. No deficits noted. Extremities: No cyanosis, clubbing, or edema b/l. Peripheral pulses 2+. Capillary refill less than 2 seconds. NEUROLOGICAL: NIH 0. GCS 15. Cranial nerves grossly intact. Normal speech, normal gait. Normal sensory, motor exams. Reflexes 2+ b/l. ALF's negative. Pronator drift negative. Heel/bright, finger/nose wnl. Romberg neg. PSYCH: Normal mood, normal affect. SKIN: Warm, Dry, normal turgor, no rashes or lesions noted. - Related Data Allergies/Adverse Reactions: No Known Allergies Allergy (Verified 02/20/19 13:04) Past Medical History - Past Medical History Cardiac Medical History: Denies: Hx Heart Attack, Hx Hypertension Pulmonary Medical History: Denies: Hx Asthma Neurological Medical History: Denies: Hx Cerebrovascular Accident, Hx Seizures Renal/ Medical History: Denies: Hx Ovarian Cysts, Hx Pelvic Inflammatory Disease Malignancy Medical History: Reports: Hx Breast Cancer - RIGHT BREAST CANCER GI Medical History: Denies: Hx Hepatitis, Hx Hiatal Hernia, Hx Ulcer Infectious Medical History: Denies: Hx Hepatitis Past Surgical History: Reports: Hx Mastectomy - RIGHT/NO RESTRICTIONS. Denies: Hx Appendectomy, Hx Bowel Surgery, Hx Section, Hx Cholecystectomy, Hx Coronary Artery Bypass Graft, Hx Gastric Bypass Surgery, Hx Herniorrhaphy, Hx Hysterectomy, Hx Open Heart Surgery, Hx Pacemaker, Hx Tonsillectomy, Hx Tubal Ligation Physical Exam - Vital signs Vitals: Temp Pulse Resp BP Pulse Ox 97.8 F 61 16 130/68 H 97 02/20/19 13:18 02/20/19 13:18 02/20/19 13:18 02/20/19 13:18 02/20/19 13:18 Course - Vital Signs Vital signs: Temp Pulse Resp BP Pulse Ox 97.8 F 61 16 130/68 H 97 02/20/19 13:18 02/20/19 13:18 02/20/19 13:18 02/20/19 13:18 02/20/19 13:18 Doctor's Discharge - Discharge Referrals: LOREE CARPENTER MD [Primary Care Provider] - Follow up as needed
--- NOTE | 2019-02-20 14:21 | RADIOLOGY REPORT (SQ) ---
EXAM DESCRIPTION: CT HEAD WITHOUT COMPLETED DATE/TIME: 02/20/2019 2:07 pm REASON FOR STUDY: left arm weakness/numbness, improved COMPARISON: None. TECHNIQUE: Axial images acquired through the brain without intravenous contrast. Images reviewed wi th bone, brain and subdural windows. Additional sagittal and coronal reconstructions were generated. Images stored on PACS. All CT scanners at this facility use dose modulation, iterative reconstruction, and/or weight based d osing when appropriate to reduce radiation dose to as low as reasonably achievable (ALARA). [facility]: Dose Right [facility]: CareDose [facility]: Dose Right [facility]: Teradose 4D [facility]: Hostel Rocket RADIATION DOSE: CT Rad equipment meets quality standard of care and radiation dose reduction techniq ues were employed. CTDIvol: 53.2 mGy. DLP: 991 mGy-cm. mGy. LIMITATIONS: None. FINDINGS: VENTRICLES: Normal size and contour. CEREBRUM: No masses. No hemorrhage. No midline shift. No evidence for acute infarction. Normal gra y/white matter differentiation. No areas of low density in the white matter. CEREBELLUM: No masses. No hemorrhage. No alteration of density. No evidence for acute infarction. EXTRAAXIAL SPACES: No fluid collections. No masses. ORBITS AND GLOBE: No intra- or extraconal masses. Normal contour of globe without masses. CALVARIUM: No fracture. PARANASAL SINUSES: No fluid or mucosal thickening. SOFT TISSUES: No mass or hematoma. OTHER: No other significant finding. IMPRESSION: NORMAL BRAIN CT WITHOUT CONTRAST. EVIDENCE OF ACUTE STROKE: NO. COMMENT: Quality ID # [id number]: Final reports with documentation of one or more dose reduction techniques (e.g., Automated exposure control, adjustment of the mA and/or kV according to patient size, use of iterative reconstruction technique) TECHNICAL DOCUMENTATION: JOB ID: [id number] [employer]- All Rights Reserved Reading location - IP/workstation name: [email or web address]
[2019-02-20 15:21] LABS: INTERNATIONAL RATION (INR) 0.92; PARTIAL THROMBOPLASTIN TIME 30.9 SEC (23.5-35.8); PROTHROMBIN TIME 12.8 SEC (11.4-15.4)
[2019-02-20 15:26] LABS: ABSOLUTE BASOPHILS # (AUTO) 0.1 10^3/uL (0.0-0.2); ABSOLUTE EOSINOPHILS # (AUTO) 0.1 10^3/uL (0.0-0.6); ABSOLUTE LYMPHOCYTES (AUTO) 2.4 10^3/uL (0.5-4.7); ABSOLUTE MONOCYTES (AUTO) 0.6 10^3/uL (0.1-1.4); ABSOLUTE NEUT (AUTO) 7.4 10^3/uL (1.7-8.2); BASOPHILS % (AUTO) 0.9 % (0-2); EOSINOPHILS % (AUTO) 0.9 % (0-6); HEMATOCRIT 45.6 % (36.0-47.0); HEMOGLOBIN 15.3 g/dL (12.0-15.5); LYMPHOCYTES % (AUTO) 22.4 % (13-45); MEAN CORPUSCULAR HEMOGLOBIN 31.4 pg (27.0-33.4); MEAN CORPUSCULAR HGB CONC 33.6 g/dL (32.0-36.0); MEAN CORPUSCULAR VOLUME 93 fl (80-97); MONOCYTES % (AUTO) 5.3 % (3-13); PLATELET COUNT 198 10^3/uL (150-450); RED BLOOD COUNT 4.88 10^6/uL (3.72-5.28); RED CELL DISTRIBUTION WIDTH 13.1 % (11.5-14.0); SEGMENTED NEUTROPHILS % (AUTO) 70.5 % (42-78); TOTAL CELLS COUNTED % (AUTO) 100 %; WHITE BLOOD COUNT 10.5 10^3/uL (4.0-10.5)
[2019-02-20 15:33] LABS: ALANINE AMINOTRANSFERASE 17 U/L (9-52); ALBUMIN 4.6 g/dL (3.5-5.0); ALKALINE PHOSPHATASE 102 U/L (38-126); ANION GAP 9 (5-19); ASPARTATE AMINO TRANSFERASE 22 U/L (14-36); BILIRUBIN,DIRECT 0.3 mg/dL (0.0-0.4); BILIRUBIN,TOTAL 0.8 mg/dL (0.2-1.3); BLOOD UREA NITROGEN 17 mg/dL (7-20); CALCIUM 11.3 mg/dL (8.4-10.2); CARBON DIOXIDE 25 mmol/L (22-30); CHLORIDE 107 mmol/L (98-107); GLUCOSE 88 mg/dL (75-110); POTASSIUM 4.5 mmol/L (3.6-5.0); SODIUM 141.2 mmol/L (137-145); TOTAL PROTEIN 7.6 g/dL (6.3-8.2)
--- NOTE | 2019-02-20 17:28 | ER Document Report ---
ED General - General Chief Complaint: Numbness of Arm Stated Complaint: LEFT ARM/FINGERS NUMBNESS Time Seen by Provider: 02/20/19 13:22 Primary Care Provider: LOREE CARPENTER MD [Primary Care Provider] - Follow up as needed Mode of Arrival: Ambulatory Information source: Patient TRAVEL OUTSIDE OF THE [place] IN LAST 30 DAYS: No - HPI Patient complains to provider of: Left arm numbness Onset: Other - Around 11:00 this morning Onset/Duration: Sudden Quality of pain: No pain Severity: None Associated symptoms: None Exacerbated by: Denies Relieved by: Denies Similar symptoms previously: No Recently seen / treated by doctor: No Notes: Patient is a 73-year-old female coming in today to be evaluated for a brief episode of left arm numbness. She was apparently holding sunglasses on her left hand and looked down and realized the sunglasses it fallen out and when she reached down to try to pick them up her left arm was floppy and she could not articulate her hand to pick them up. According to her, this occurred for about 12 to 15 minutes. It has since gone back to normal. Patient reports that she did not experience any weakness or paresthesias in her face or in her leg on the left side. She has very little medical history. She has a history of mastectomy in the past. Does not have blood pressure cholesterol or diabetes. She is a smoker. This is the first time that she has had symptoms like this. - Related Data Allergies/Adverse Reactions: No Known Allergies Allergy (Verified 02/20/19 13:04) Past Medical History - General Information source: Patient - Social History Smoking Status: Never Smoker Family History: Reviewed & Not Pertinent Patient has suicidal ideation: No Patient has homicidal ideation: No - Past Medical History Cardiac Medical History: Denies: Hx Heart Attack, Hx Hypertension Pulmonary Medical History: Denies: Hx Asthma Neurological Medical History: Denies: Hx Cerebrovascular Accident, Hx Seizures Renal/ Medical History: Denies: Hx Ovarian Cysts, Hx Peritoneal Dialysis, Hx P elvic Inflammatory Disease Malignancy Medical History: Reports: Hx Breast Cancer - RIGHT BREAST CANCER GI Medical History: Denies: Hx Hepatitis, Hx Hiatal Hernia, Hx Ulcer Musculoskeletal Medical History: Denies Hx Arthritis Infectious Medical History: Denies: Hx Hepatitis Past Surgical History: Reports: Hx Mastectomy - RIGHT/NO RESTRICTIONS. Denies: Hx Appendectomy, Hx Bowel Surgery, Hx Section, Hx Cholecystectomy, Hx Coronary Artery Bypass Graft, Hx Gastric Bypass Surgery, Hx Herniorrhaphy, Hx Hysterectomy, Hx Open Heart Surgery, Hx Pacemaker, Hx Tonsillectomy, Hx Tubal Ligation - Immunizations Hx Pneumococcal Vaccination: 06/15/16 Review of Systems - Review of Systems Notes: Constitutional: No fevers. No chills. EENT: No eye redness. No eye pain. No ear pain. No sore throat. Cardiovascular: No chest pain. No palpitations. Respiratory: No cough. No shortness of breath. No respiratory distress. Gastrointestinal: No abdominal pain. No nausea, vomiting, or diarrhea. Genitourinary: Atraumatic. No lesions. No pain. No discharge. Musculoskeletal: Atraumatic. No swelling. No deformities. Skin: No rash or lesions. Lymphatic: No swollen lymph nodes. Neurologic: History of left arm weakness Psychiatric: No suicidal or homicidal ideation. Physical Exam - Vital signs Vitals: Temp Pulse Resp BP Pulse Ox 97.8 F 61 16 130/68 H 97 02/20/19 13:18 02/20/19 13:18 02/20/19 13:18 02/20/19 13:18 02/20/19 13:18 - Notes Notes: General: Well-developed, well-nourished. In no acute distress. Non-toxic appearing. Cardiac: Well-perfused. Regular rate and rhythm. No murmurs, rubs, or gallops. Pulmonary: No respiratory distress. No cyanosis. Bilateral lung fiels are clear to auscultation. Abdominal: Non-distended. Non-rigid. Bowels sounds are present in all four quadrants. No guarding or rebound. HEENT: Head is atraumatic. Conjunctivae not reddened. No tearing. PERRL. EOMI. Orbits atraumatic. No periorbital swelling or erythema. Oropharynx is without erythema, swelling, or exudates. Neck: Supple. No adenopathy. No meningismus. Dermatologic: Warm with good turgor. No rash. Atraumatic. Chest: Atraumatic. No chest wall tenderness to palpation. Musculoskeletal: Moves all extremities well. No range of motion deficits. no muscular or joint tenderness. No paraspinal muscle tenderness. no midline spinal tenderness or step-off. Genitourinary: Examination deferred Neurologic: Strong minister assistant strength bilateral upper extremities. No focal neurologic deficits. Cranial nerves II through XII grossly intact. There is no evidence of any facial droop. No weakness in the legs. Psychiatric: Normal mood. Course - Re-evaluation Re-evalutation: 02/20/19 17:29 Patient's age and smoking history do put her at risk for vascular disease. It is possible that the patient experienced a TIA earlier today. She has an appointment with her primary care doctor tomorrow. 02/20/19 18:17 Sounds like the patient had a TIA. Called her primary care physician Dr. Carpenter. He wants her to be admitted for work-up. Patient is in agreement. Will stay for work-up. - Vital Signs Vital signs: Temp Pulse Resp BP Pulse Ox 97.8 F 61 16 130/68 H 97 02/20/19 13:18 02/20/19 13:18 02/20/19 13:18 02/20/19 13:18 02/20/19 13:18 - Laboratory Result Diagrams: 02/20/19 14:50 02/20/19 14:50 Laboratory results interpreted by me: 02/20/19 14:50 Calcium 11.3 H Discharge - Discharge Clinical Impression: TIA (transient ischemic attack) Condition: Good Disposition: ADMITTED OBSERVATION Admitting Provider: Jose Guadalupe Unit Admitted: [facility] Referrals: LOREE CARPENTER MD [Primary Care Provider] - Follow up as needed
--- NOTE | 2019-02-20 20:04 | EKG REPORT ---
SEVERITY:- OTHERWISE NORMAL ECG - SINUS RHYTHM BORDERLINE LEFT AXIS DEVIATION : Confirmed by: Darnell Pelayo MD 20-Feb-2019 20:03:43
[2019-02-20] MEDS ORDERED: ASPIRIN 81 MG TABLET, ENT COATED PO ONE (22:29)
[2019-02-20] MEDS: NORMAL SALINE 1000 ML 1,000 ML IV PRN (22:59)
[2019-02-21 00:23] LABS: APPEARANCE,URINE SLIGHTLY-CLOUDY; BILIRUBIN,URINE NEGATIVE (NEGATIVE); COLOR,URINE YELLOW; GLUCOSE, URINE NEGATIVE (NEGATIVE); KETONES,URINE TRACE mg/dL (NEGATIVE); LEUKOCYTE ESTERASE,URINE TRACE (NEGATIVE); NITRITE,URINE NEGATIVE (NEGATIVE); PROTEIN,URINE NEGATIVE (NEGATIVE); URINE SPECIFIC GRAVITY 1.016; UROBILINOGEN,URINE NEGATIVE mg/dL (<2.0)
[2019-02-21 05:47] LABS: CHOLESTEROL 215.63 mg/dL (0-200); TRIGLYCERIDES 90 mg/dL (<150)
[2019-02-21 05:58] LABS: DIRECT LDL 130 mg/dL (<100)
--- NOTE | 2019-02-21 08:17 | RADIOLOGY REPORT (SQ) ---
EXAM DESCRIPTION: MRI HEAD WITHOUT COMPLETED DATE/TIME: 02/21/2019 7:51 am REASON FOR STUDY: TIA /CVA G45.9 TRANSIENT CEREBRAL ISCHEMIC ATTACK, UNSPECIFIED COMPARISON: CT brain 02/20/2019 TECHNIQUE: Multiplanar imaging includes non-contrasted T1, T2, FLAIR, and diffusion with ADC map seq uences. Images stored on PACS. LIMITATIONS: None. FINDINGS: ANATOMY: No developmental anomalies. Normal vascular flow voids. Pituitary fossa normal. CSF SPACES: Normal in size and contour. No hemorrhage. CEREBRUM: Sulci and gyri normal in size and contour. Spotty increased bifrontal and biparietal deep periventricular white matter signal on FLAIR imaging from age-appropriate small vessel ischemic severino e. No evidence of hemorrhage, mass, or extraaxial fluid collection. POSTERIOR FOSSA: No signal alteration. No hemorrhage. No edema, masses or mass effect. Internal anuj tory canals, cerebello-pontine angles, mastoids normal. DIFFUSION IMAGING: Negative for acute or sub-acute infarction. ORBITS: No masses. Globes normal. PARANASAL SINUSES: No fluid levels. Mucosa normal. OTHER: No other significant finding. IMPRESSION: AGE-APPROPRIATE DEEP HEMISPHERIC SMALL VESSEL WHITE MATTER DISEASE, CHRONIC. OTHERWISE UNREMARKABLE MRI OF THE BRAIN WITHOUT INTRAVENOUS GADOLINIUM CONTRAST. EVIDENCE OF ACUTE STROKE: NO. TECHNICAL DOCUMENTATION: JOB ID: [id number] [employer]- All Rights Reserved Reading location - IP/workstation name: [email or web address]
[2019-02-21 10:10] LABS: ALANINE AMINOTRANSFERASE 18 U/L (9-52); ALBUMIN 3.9 g/dL (3.5-5.0); ALKALINE PHOSPHATASE 84 U/L (38-126); ANION GAP 7 (5-19); ASPARTATE AMINO TRANSFERASE 19 U/L (14-36); BILIRUBIN,DIRECT 0.2 mg/dL (0.0-0.4); BILIRUBIN,TOTAL 0.8 mg/dL (0.2-1.3); BLOOD UREA NITROGEN 20 mg/dL (7-20); CALCIUM 10.7 mg/dL (8.4-10.2); CARBON DIOXIDE 24 mmol/L (22-30); CHLORIDE 111 mmol/L (98-107); GLUCOSE 111 mg/dL (75-110); POTASSIUM 4.6 mmol/L (3.6-5.0); TOTAL PROTEIN 6.6 g/dL (6.3-8.2)
[2019-02-21] MEDS: NORMAL SALINE 1000 ML 1,000 ML IV PRN (11:19)
--- NOTE | 2019-02-21 12:39 | RADIOLOGY REPORT (SQ) ---
EXAM DESCRIPTION: CAROTID DOPPLER COMPLETED DATE/TIME: 02/21/2019 12:22 pm REASON FOR STUDY: TIA G45.9 TRANSIENT CEREBRAL ISCHEMIC ATTACK, UNSPECIFIED COMPARISON: MRI brain 02/21/2019, CT brain 02/20/2019 TECHNIQUE: Grayscale ultrasound, Doppler velocity and spectra, and color Doppler images acquired of the extra-cranial carotid and vertebral arteries. Images stored on PACS. LIMITATIONS: None. FINDINGS: RIGHT CAROTID CCA Velocities: Within normal limits. Right common carotid artery peak systolic velocity 0.56 m/sec ICA Velocities Peak systolic 0.89 m/s. End diastolic 0.27 m/s. Proximal ICA/CCA peak systolic ratio normal. Spectra normal. No significant plaque. LEFT CAROTID CCA Velocities: Within normal limits. Left common carotid artery peak systolic velocity 0.8 m/sec ICA Velocities Peak systolic 0.50 m/s. End diastolic 0.16 m/s. Proximal ICA/CCA peak systolic ratio normal. Spectra normal. No significant plaque. VERTEBRAL ARTERIES: Antegrade flow. Normal waveforms. SUBCLAVIAN ARTERIES: Not evaluated OTHER: No other significant finding. IMPRESSION: NO HEMODYNAMICALLY SIGNIFICANT STENOSIS. COMMENT: Quality ID #[id number]: Velocity criteria are extrapolated from the diameter data as defined by t he Society of Radiologists in Ultrasound Consensus Conference. Radiology 2003: 229; 340-346. TECHNICAL DOCUMENTATION: JOB ID: [id number] [employer]- All Rights Reserved Reading location - IP/workstation name: [email or web address]
--- NOTE | 2019-02-21 14:29 | RADIOLOGY REPORT (SQ) ---
EXAM DESCRIPTION: NM PARATHYROID IMAGING COMPLETED DATE/TIME: 02/21/2019 2:18 pm REASON FOR STUDY: primary hyperparathyroidism G45.9 TRANSIENT CEREBRAL ISCHEMIC ATTACK, UNSPECIFIE D COMPARISON: None. RADIONUCLIDE AND DOSE: 21.0 millicuries Tc-99m Sestamibi. The route of agent administration: Intravenous ADDITIONAL DRUGS AND DOSES: None. TECHNIQUE: Early and delayed images of the neck acquired following radionuclide administration. LIMITATIONS: None. FINDINGS: Thyroid: Normal size. Homogeneous activity. Normal washout. No focal lesions. Parathyroid: There is retained activity in the lower pole of the left lobe of the thyroid on delayed imaging. Other: No other significant findings. IMPRESSION: RETAINED ACTIVITY IN THE LOWER POLE OF THE LEFT LOBE OF THE THYROID CONSISTENT WITH A PA RATHYROID ADENOMA. TECHNICAL DOCUMENTATION: JOB ID: [id number] [employer]- All Rights Reserved Reading location - IP/workstation name: [email or web address]
--- NOTE | 2019-02-21 20:03 | PDOC H&P ---
History of Present Illness Admission Date/PCP: 02/20/19 18:22 LOREE CARPENTER MD History of Present Illness: SONA WORLEY is a 73 year old female,She came to the emergency room for e valuation of new onset numbness of the left upper extremity with associated transient weakness, the symptoms scheduled, she came to emergency room for evaluation, because of her presentation transient ischemic attack was suspected, it was felt that patient needed to be admitted to the hospital for further evaluation. 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 In the emergency room the the initial CAT scan of the brain that was done was negative for acute stroke the blood work that was done demonstrated severe hypercalcemia, this serum calcium was 11, because of the hypercalcemia serum PTH level was assayed to determine if the hypercalcemia is PTH mediated,The serum PTH was elevated at over 150. Based on the ABCD scoring system patient was brought in for observation and management for TIA. The carotid Doppler did not demonstrate any hemodynamically significant stenosis, MRI brain without contrast was obtained it was unremarkable there was age- appropriate deep hemispheric small vessel white matter disease.So clearly she has primary hyperparathyroidism the nuclear medicine parathyroid imaging was obtained it demonstrated retained activity in the lower pole of the left lobe of the thyroid on delayed imaging consistent with a parathyroid adenoma Past Medical History Malignancy Medical History: Reports: Breast Cancer - RIGHT BREAST CANCER, Colorectal Cancer Past Surgical History Past Surgical History: Reports: Mastectomy - RIGHT/NO RESTRICTIONS, Other - Left hemicolectomy Social History Smoking Status: Current Every Day Smoker Cigarettes Packs Per Day: 0.3 Number of Years Smokin Frequency of Alcohol Use: None Hx Recreational Drug Use: No Drugs: None Hx Prescription Drug Abuse: No - Advance Directive Resuscitation Status: Full Code Family History Family History: Reviewed & Not Pertinent Parental Family History Reviewed: Yes Children Family History Reviewed: Yes Sibling(s) Family History Reviewed.: Yes Medication/Allergy Home Medications: No Home Medications 02/20/19 Allergies/Adverse Reactions: No Known Allergies Allergy (Verified 02/20/19 13:04) Review of Systems Constitutional: ABSENT: chills, fever(s), headache(s), weight gain, weight loss Eyes: ABSENT: visual disturbances Ears: ABSENT: hearing changes Cardiovascular: ABSENT: chest pain, dyspnea on exertion, edema, orthropnea, palpitations Respiratory: ABSENT: cough, hemoptysis Gastrointestinal: ABSENT: abdominal pain, constipation, diarrhea, hematemesis, hematochezia, nausea, vomiting Genitourinary: ABSENT: dysuria, hematuria Musculoskeletal: ABSENT: joint swelling Integumentary: ABSENT: rash, wounds Neurological: PRESENT: numbness, weakness. ABSENT: abnormal gait, abnormal speech, confusion, dizziness, focal weakness, syncope Psychiatric: ABSENT: anxiety, depression, homidical ideation, suicidal ideation Endocrine: ABSENT: cold intolerance, heat intolerance, menstrual abnormalities, polydipsia, polyuria Hematologic/Lymphatic: ABSENT: easy bleeding, easy bruising, lymphadenopathy Physical Exam Vital Signs: Temp Pulse Resp BP Pulse Ox 98.1 F 56 L 16 106/59 L 97 02/21/19 15:35 02/21/19 15:35 02/21/19 15:35 02/21/19 15:35 02/21/19 15:35 Intake & Output 02/20/19 02/21/19 02/22/19 06:59 06:59 06:59 Intake Total 1580 Output Total 500 Balance -500 1580 Weight 54.8 kg General appearance: PRESENT: no acute distress, well-developed, well-nourished Head exam: PRESENT: atraumatic, normocephalic Eye exam: PRESENT: conjunctiva pink, EOMI, PERRLA Ear exam: PRESENT: normal external ear exam Mouth exam: PRESENT: moist, tongue midline Neck exam: PRESENT: full ROM Respiratory exam: PRESENT: clear to auscultation brett Cardiovascular exam: PRESENT: RRR, +S1, +S2 Pulses: PRESENT: normal dorsalis pedis pul, +2 pedal pulses bilateral Vascular exam: PRESENT: normal capillary refill GI/Abdominal exam: PRESENT: normal bowel sounds, soft Rectal exam: PRESENT: deferred Neurological exam: PRESENT: alert, awake, oriented to person, oriented to place, oriented to time, oriented to situation, CN II-XII grossly intact Psychiatric exam: PRESENT: appropriate affect, normal mood Skin exam: PRESENT: dry, intact, warm Results Laboratory Results: 02/20/19 14:50 02/21/19 08:46 02/20/19 02/21/19 02/21/19 22:42 00:02 04:24 Sodium Potassium Chloride Carbon Dioxide Anion Gap BUN Creatinine Est GFR ( Amer) Est GFR (Non-Af Amer) Glucose Calcium Total Bilirubin AST ALT Alkaline Phosphatase Total Protein Albumin Triglycerides 90 Cholesterol 215.63 H LDL Cholesterol Direct 130 H VLDL Cholesterol 18.0 HDL Cholesterol 55 PTH Intact 176.9 H Urine Color YELLOW Urine Appearance SLIGHTLY-CLOUDY Urine pH 5.0 Ur Specific [place] 1.016 Urine Protein NEGATIVE Urine Glucose (UA) NEGATIVE Urine Ketones TRACE H Urine Blood SMALL H Urine Nitrite NEGATIVE Ur Leukocyte Esterase TRACE H Urine WBC (Auto) 7 Urine RBC (Auto) 2 02/21/19 08:46 Sodium 142.0 Potassium 4.6 Chloride 111 H Carbon Dioxide 24 Anion Gap 7 BUN 20 Creatinine 0.60 Est GFR ( Amer) > 60 Est GFR (Non-Af Amer) > 60 Glucose 111 H Calcium 10.7 H Total Bilirubin 0.8 AST 19 ALT 18 Alkaline Phosphatase 84 Total Protein 6.6 Albumin 3.9 Triglycerides Cholesterol LDL Cholesterol Direct VLDL Cholesterol HDL Cholesterol PTH Intact Urine Color Urine Appearance Urine pH Ur Specific [place] Urine Protein Urine Glucose (UA) Urine Ketones Urine Blood Urine Nitrite Ur Leukocyte Esterase Urine WBC (Auto) Urine RBC (Auto) 02/20/19 02/21/19 22:42 04:24 Troponin I < 0.012 < 0.012 Impressions: Head CT 02/20/19 13:31 IMPRESSION: NORMAL BRAIN CT WITHOUT CONTRAST. EVIDENCE OF ACUTE STROKE: NO. Carotid Doppler Study 02/21/19 00:00 IMPRESSION: NO HEMODYNAMICALLY SIGNIFICANT STENOSIS. Parathyroid Scan Nuclear Medicine 02/21/19 00:00 IMPRESSION: RETAINED ACTIVITY IN THE LOWER POLE OF THE LEFT LOBE OF THE THYROID CONSISTENT WITH A PARATHYROID ADENOMA. Head MRI 02/21/19 07:26 IMPRESSION: AGE-APPROPRIATE DEEP HEMISPHERIC SMALL VESSEL WHITE MATTER DISEASE, CHRONIC. OTHERWISE UNREMARKABLE MRI OF THE BRAIN WITHOUT INTRAVENOUS GADOLINIUM CONTRAST. EVIDENCE OF ACUTE STROKE: NO. Assessment & Plan - Diagnosis (1) TIA (transient ischemic attack) Is this a current diagnosis for this admission?: Yes Plan: Patient symptoms is suspicious for TIA, the symptoms could also be from hypercalcemia (2) Hypercalcemia Is this a current diagnosis for this admission?: Yes Plan: She has symptomatic hypercalcemia due to primary hyperparathyroidism, she is treated with hydration (3) Primary hyperparathyroidism Is this a current diagnosis for this admission?: Yes Plan: Consultation is requested from DR Byers (4) Parathyroid adenoma Is this a current diagnosis for this admission?: Yes
[2019-02-21] MEDS ORDERED: ENOXAPARIN SODIUM INJ 40 MG/0.4 ML DISP.SYRIN SUBCUT SCH (20:30)
--- NOTE | 2019-02-21 20:33 | PDOC DISCHARGE SUMMARY ---
General - Admit/Disc Date/PCP Admission Date/Primary Care Provider: 02/20/19 18:22 LOREE CARPENTER MD Discharge Date: 02/22/19 - Discharge Diagnosis (1) TIA (transient ischemic attack) Is this a current diagnosis for this admission?: Yes (2) Hypercalcemia Is this a current diagnosis for this admission?: Yes (3) Primary hyperparathyroidism Is this a current diagnosis for this admission?: Yes (4) Parathyroid adenoma Is this a current diagnosis for this admission?: Yes - Additional Information Resuscitation Status: Full Code Prescriptions: Atorvastatin Calcium [Lipitor 40 mg Tablet] 40 mg PO QHS #90 tablet Aspirin [Adult Aspirin Regimen] 81 mg PO DAILY #90 tablet. Home Medications: Aspirin [Adult Aspirin Regimen] 81 mg PO DAILY #90 tablet. 02/21/19 Atorvastatin Calcium [Lipitor 40 mg Tablet] 40 mg PO QHS #90 tablet 02/21/19 History of Present Illness History of Present Illness: SONA WORLEY is a 73 year old female,She came to the emergency room for evaluation of new onset numbness of the left upper extremity with associated transient weakness, the symptoms scheduled, she came to emergency room for evaluation, because of her presentation transient ischemic attack was suspected, it was felt that patient needed to be admitted to the hospital for further evaluation. 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 In the emergency room the the initial CAT scan of the brain that was done was negative for acute stroke the blood work that was done demonstrated severe hypercalcemia, this serum calcium was 11, because of the hypercalcemia serum PTH level was assayed to determine if the hypercalcemia is PTH mediated,The serum PTH was elevated at over 150. Based on the ABCD scoring system patient was brought in for observation and management for TIA. The carotid Doppler did not demonstrate any hemodynamically significant stenosis, MRI brain without contrast was obtained it was unremarkable there was age- appropriate deep hemispheric small vessel white matter disease.So clearly she has primary hyperparathyroidism the nuclear medicine parathyroid imaging was obtained it demonstrated retained activity in the lower pole of the left lobe of the thyroid on delayed imaging consistent with a parathyroid adenoma Hospital Course Hospital Course: Patient was admitted for the management of transient ischemic attack, she was found to have hypercalcemia due to primary hyperparathyroidism. The hypercalcemia was treated with normal saline infusion with normalization of the serum calcium. She will be discharged home to follow outpatient with Dr. Byers Physical Exam Vital Signs: Temp Pulse Resp BP Pulse Ox 98.1 F 56 L 16 106/59 L 97 02/21/19 15:35 02/21/19 15:35 02/21/19 15:35 02/21/19 15:35 02/21/19 15:35 Intake & Output 02/20/19 02/21/19 02/22/19 06:59 06:59 06:59 Intake Total 1580 Output Total 500 Balance -500 1580 Weight 54.8 kg General appearance: PRESENT: no acute distress, well-developed, well-nourished Head exam: PRESENT: atraumatic, normocephalic Eye exam: PRESENT: conjunctiva pink, EOMI, PERRLA Ear exam: PRESENT: normal external ear exam Mouth exam: PRESENT: moist, tongue midline Neck exam: PRESENT: full ROM Respiratory exam: PRESENT: clear to auscultation brett Cardiovascular exam: PRESENT: RRR, +S1, +S2 Pulses: PRESENT: normal dorsalis pedis pul, +2 pedal pulses bilateral Vascular exam: PRESENT: normal capillary refill GI/Abdominal exam: PRESENT: normal bowel sounds, soft Rectal exam: PRESENT: deferred Neurological exam: PRESENT: alert, CN II-XII grossly intact Psychiatric exam: PRESENT: appropriate affect, normal mood Skin exam: PRESENT: dry, intact, warm. ABSENT: cyanosis, rash Results Laboratory Results: 02/20/19 14:50 02/21/19 08:46 02/20/19 02/21/19 02/21/19 22:42 00:02 04:24 Sodium Potassium Chloride Carbon Dioxide Anion Gap BUN Creatinine Est GFR ( Amer) Est GFR (Non-Af Amer) Glucose Calcium Total Bilirubin AST ALT Alkaline Phosphatase Total Protein Albumin Triglycerides 90 Cholesterol 215.63 H LDL Cholesterol Direct 130 H VLDL Cholesterol 18.0 HDL Cholesterol 55 PTH Intact 176.9 H Urine Color YELLOW Urine Appearance SLIGHTLY-CLOUDY Urine pH 5.0 Ur Specific Dawson 1.016 Urine Protein NEGATIVE Urine Glucose (UA) NEGATIVE Urine Ketones TRACE H Urine Blood SMALL H Urine Nitrite NEGATIVE Ur Leukocyte Esterase TRACE H Urine WBC (Auto) 7 Urine RBC (Auto) 2 02/21/19 08:46 Sodium 142.0 Potassium 4.6 Chloride 111 H Carbon Dioxide 24 Anion Gap 7 BUN 20 Creatinine 0.60 Est GFR ( Amer) > 60 Est GFR (Non-Af Amer) > 60 Glucose 111 H Calcium 10.7 H Total Bilirubin 0.8 AST 19 ALT 18 Alkaline Phosphatase 84 Total Protein 6.6 Albumin 3.9 Triglycerides Cholesterol LDL Cholesterol Direct VLDL Cholesterol HDL Cholesterol PTH Intact Urine Color Urine Appearance Urine pH Ur Specific Dawson Urine Protein Urine Glucose (UA) Urine Ketones Urine Blood Urine Nitrite Ur Leukocyte Esterase Urine WBC (Auto) Urine RBC (Auto) 02/20/19 02/21/19 22:42 04:24 Troponin I < 0.012 < 0.012 Impressions: Head CT 02/20/19 13:31 IMPRESSION: NORMAL BRAIN CT WITHOUT CONTRAST. EVIDENCE OF ACUTE STROKE: NO. Carotid Doppler Study 02/21/19 00:00 IMPRESSION: NO HEMODYNAMICALLY SIGNIFICANT STENOSIS. Parathyroid Scan Nuclear Medicine 02/21/19 00:00 IMPRESSION: RETAINED ACTIVITY IN THE LOWER POLE OF THE LEFT LOBE OF THE THYROID CONSISTENT WITH A PARATHYROID ADENOMA. Head MRI 02/21/19 07:26 IMPRESSION: AGE-APPROPRIATE DEEP HEMISPHERIC SMALL VESSEL WHITE MATTER DISEASE, CHRONIC. OTHERWISE UNREMARKABLE MRI OF THE BRAIN WITHOUT INTRAVENOUS GADOLINIUM CONTRAST. EVIDENCE OF ACUTE STROKE: NO. Qualifiers - * PATIENT BEING DISCHARGED WITH ANY OF THE FOLLOWING DIAGNOSIS: No VTE patient discharged on overlapping Therapy?: No Reason(s) for not prescribing Overlap Therapy:: Not indicated Stroke Pt being discharged on Anti-thrombolytic therapy?: No Reason(s) for not prescribing Anti-thrombolytic therapy:: Not indicated Reason(s) for not prescribing Anti-coagulation therapy:: Not indicated Stroke Pt being discharged on Statins?: No Reason(s) for not prescribing Statins therapy:: Not indicated LA Pt being discharged on Aspirin therapy?: No Reason(s) for not prescribing Aspirin therapy:: Not indicated LA Pt being discharged on Statins?: No Reason(s) for not prescribing Statin therapy:: Not indicated LA Pt discharged ACEI/ARBS?: No Reason(s) for not prescribing ACEI/ARBS:: Not indicated Acute Heart Failure - Is this a Heart Failure Patient?: No Documentation of LVEF assessment?: No, Document reason LVEF < 40%?: No- if no continue to question #3 3. Anticoagulant therapy for permanect/persistent/paraoxysmal Afib or Aflutter: N/A Follow-up Appointment scheduled within 7 days?: Yes
[2019-02-21] MEDS ORDERED: ASPIRIN 325 MG TABLET PO SCH (20:45)
[2019-02-21] MEDS ORDERED: ATORVASTATIN CALCIUM 40 MG TABLET PO SCH (22:00)
[2019-02-22] MEDS: NORMAL SALINE 1000 ML 1,000 ML IV PRN (00:04)
[2019-02-22 04:42] LABS: ALANINE AMINOTRANSFERASE 13 U/L (9-52); ALBUMIN 3.4 g/dL (3.5-5.0); ALKALINE PHOSPHATASE 77 U/L (38-126); ANION GAP 6 (5-19); ASPARTATE AMINO TRANSFERASE 18 U/L (14-36); BILIRUBIN,DIRECT 0.2 mg/dL (0.0-0.4); BILIRUBIN,TOTAL 0.6 mg/dL (0.2-1.3); BLOOD UREA NITROGEN 19 mg/dL (7-20); CALCIUM 10.8 mg/dL (8.4-10.2); CARBON DIOXIDE 22 mmol/L (22-30); CHLORIDE 112 mmol/L (98-107); GLUCOSE 90 mg/dL (75-110); POTASSIUM 4.4 mmol/L (3.6-5.0); SODIUM 139.7 mmol/L (137-145); TOTAL PROTEIN 5.8 g/dL (6.3-8.2)
[2019-02-22 09:32] VITALS: BP 140/71
== END 2019-02-22 10:10 | disposition home health service (06) ==
LOC: ER 12:53 → EH 18:22 → 3N 21:19
PROVIDERS: ADMIT Internal Medicine; ATTEND Internal Medicine
DX: G45.9 Transient cerebral ischemic attack, unspecified (principal); E21.0 Primary hyperparathyroidism; D35.1 Benign neoplasm of parathyroid gland; F17.210 Nicotine dependence, cigarettes, uncomplicated; Z79.82 Long term (current) use of aspirin; Z79.899 Other long term (current) drug therapy; Z90.49 Acquired absence of other specified parts of digestive tract; Z85.038 Personal history of other malignant neoplasm of large intestine; Z85.3 Personal history of malignant neoplasm of breast; Z90.11 Acquired absence of right breast and nipple
CPT/HCPCS: 93005; 99285; 36415 ×2; 85025; 85610; 85730; 80053 ×3; 81001; 84484 ×2; 82306; 80061; 83970; 93880; 70551; 78070; 70450; 93010; 97116; 97161; 97165; G0378 ×4; A9500; A9270 ×2; J7030 ×3; Q9969

== ENCOUNTER → 2019-03-02 | Outpatient (CLI) | payer MEDICARE, MEDICAID ==
[2019-03-02 13:08] LABS: HEMATOCRIT 42.2 % (36.0-47.0); HEMOGLOBIN 14.1 g/dL (12.0-15.5); MEAN CORPUSCULAR HEMOGLOBIN 31.3 pg (27.0-33.4); MEAN CORPUSCULAR HGB CONC 33.5 g/dL (32.0-36.0); MEAN CORPUSCULAR VOLUME 94 fl (80-97); PLATELET COUNT 166 10^3/uL (150-450); RED BLOOD COUNT 4.51 10^6/uL (3.72-5.28); WHITE BLOOD COUNT 10.4 10^3/uL (4.0-10.5)
[2019-03-02 13:32] LABS: ANION GAP 9 (5-19); BLOOD UREA NITROGEN 19 mg/dL (7-20); CALCIUM 10.7 mg/dL (8.4-10.2); CARBON DIOXIDE 22 mmol/L (22-30); CHLORIDE 110 mmol/L (98-107); GLUCOSE 80 mg/dL (75-110); POTASSIUM 4.3 mmol/L (3.6-5.0); SODIUM 141.2 mmol/L (137-145)
--- NOTE | 2019-03-02 14:09 | RADIOLOGY REPORT (SQ) ---
EXAM DESCRIPTION: CHEST PA/LATERAL COMPLETED DATE/TIME: 03/02/2019 12:49 pm REASON FOR STUDY: PREOP, COUGH COMPARISON: 10/09/2016 EXAM PARAMETERS: NUMBER OF VIEWS: two views TECHNIQUE: Digital Frontal and Lateral radiographic views of the chest acquired. RADIATION DOSE: NA LIMITATIONS: none FINDINGS: LUNGS AND PLEURA: The lungs are hyperexpanded. There is no infiltrate, effusion, or mass. MEDIASTINUM AND HILAR STRUCTURES: No masses or contour abnormalities. HEART AND VASCULAR STRUCTURES: Heart size is borderline. No pulmonary edema. BONES: No acute findings. HARDWARE: None in the chest. OTHER: No other significant finding. IMPRESSION: Chronic lung changes. Borderline cardiomegaly without pulmonary edema. TECHNICAL DOCUMENTATION: JOB ID: [id number] [employer]- All Rights Reserved Reading location - IP/workstation name: [email or web address]
--- NOTE | 2019-03-02 19:34 | EKG REPORT ---
SEVERITY:- OTHERWISE NORMAL ECG - SINUS RHYTHM BORDERLINE LEFT AXIS DEVIATION : Confirmed by: Monse Buam MD 02-Mar-2019 19:34:00
== END ==
LOC: OD 12:07
PROVIDERS: ATTEND Surgery
DX: Z01.818 Encounter for other preprocedural examination (principal); Z01.810 Encounter for preprocedural cardiovascular examination; D35.1 Benign neoplasm of parathyroid gland; E78.00 Pure hypercholesterolemia, unspecified; Z72.0 Tobacco use; Z82.3 Family history of stroke; R05 Cough
CPT/HCPCS: 36415; 71046; 80048; 85027; 93005; 93010

== ENCOUNTER → 2019-03-09 | Outpatient (CLI) | payer MEDICARE, MEDICAID ==
--- NOTE | 2019-03-09 15:22 | WOMENS IMAGING REPORT ---
EXAM DESCRIPTION: BONE DENSITY HIP/SPINE COMPLETED DATE/TIME: 03/09/2019 12:59 pm REASON FOR STUDY: E21.0 PRIMARY HYPERPARATHYROIDISM E21.0 PRIMARY HYPERPARATHYROIDISM COMPARISON: None. TECHNIQUE: Dual-Energy X-ray Absorptiometry (DEXA) of the AP Spine and Hip. LIMITATIONS: None. FINDINGS: LUMBAR SPINE: The bone mineral density (BMD) measured from L1-L4 in the AP projection correlates with a T-score of -2.8, which is osteoporotic as defined by the World Health Organization. HIP: The bone mineral density (BMD) measured in the left femoral neck at the hip correlates with a T-score of -3.7, which is osteoporotic as defined by the World Health Organization. IMPRESSION: 1. LUMBAR SPINE: Osteoporotic 2. HIP: Osteoporotic COMMENT: The World Health Organization defines low BMD as follows: T-score: Normal: Greater than -1.0 Osteopenia: Between -1.0 and -2.5 Osteoporosis: Less than -2.5 without fractures Established osteoporosis: Less than -2.5 with fractures In general, you may wish to consider: Diagnosis Treatment Follow-up DEXA Normal BMD Prevention 2-3 years Osteopenia Prevention/Therapy 1-2 years Osteoporosis Therapy Yearly TECHNICAL DOCUMENTATION: JOB ID: [id number] [employer]- All Rights Reserved Reading location - IP/workstation name: [email or web address]
== END ==
LOC: WI 12:39
PROVIDERS: ATTEND Internal Medicine
DX: E21.0 Primary hyperparathyroidism (principal)
CPT/HCPCS: 77080

== ENCOUNTER → 2019-03-23 | Outpatient (CLI) | payer MEDICARE, MEDICAID ==
--- NOTE | 2019-03-23 10:01 | RADIOLOGY REPORT (SQ) ---
EXAM DESCRIPTION: U/S THYROID/SFT TISS HD NECK COMPLETED DATE/TIME: 03/23/2019 9:27 am REASON FOR STUDY: D35.1 BENIGN NEOPLASM OF PARATHYROID GLAND D35.1 BENIGN NEOPLASM OF PARATHYROID G LAND COMPARISON: None. TECHNIQUE: Dynamic and static avalos-scale images acquired of the thyroid gland. Selected additional c olor/power Doppler images recorded. All images stored to PACS. LIMITATIONS: None. FINDINGS: RIGHT LOBE: Normal size. Homogeneous echotexture. There are small spongiform appearing l esions in the right lobe of the thyroid gland. The largest measures 4.1 x 4.2 x 3.3 mm. LEFT LOBE: Normal size. Homogeneous echotexture. Small spongiform appearing nodules. The largest m easures 5 x 4 x 3 mm. ISTHMUS: Normal size. Homogeneous echotexture. No cystic or solid masses. OTHER: In the area of the palpable abnormality there is a 2.6 x 1.2 x 1.3 cm solid nodule. This lies inferior to the left lobe. This could represent parathyroid adenoma. Adenopathy is a possibility. IMPRESSION: 1. Small nonspecific thyroid nodules. The largest is on the left and measures 5.0 x 4.0 x 3.0 mm. 2. 2.6 x 1.2 x 1.3 cm solid nodule just inferior to the left lobe of the thyroid gland. This could represent lymph node or possibly parathyroid adenoma. TECHNICAL DOCUMENTATION: JOB ID: [id number] [employer]- All Rights Reserved Reading location - IP/workstation name: [email or web address]
== END ==
LOC: RAD 08:29
PROVIDERS: ATTEND Surgery
DX: D35.1 Benign neoplasm of parathyroid gland (principal); E04.1 Nontoxic single thyroid nodule
CPT/HCPCS: 76536

== ENCOUNTER 2019-03-24 07:33 | Observation (INO) | payer MEDICARE, MEDICAID ==
[~2019-03-24 07:33] MED LIST changes: +ACETAMINOPHEN 325 MG TABLET ONE; +ACETAMINOPHEN 325 MG TABLET PO PRN; +BUPIVACAINE HCL 0.25 % INJ/PF (2.5 MG/1 ML) 30 ML VIAL ONE; +CEFAZOLIN 1 GM/D5W RTU 1 GM/50 ML RTUPB IV ONE; +CEFAZOLIN 1 GM/D5W RTU 1 GM/50 ML RTUPB IV PRN; -CHONDR SU A NA/HYALUR INTRAOC KIT (SURGICARE) ONE; -EPINEPHRINE INJ/PF 1 MG/1 ML AMPULE ONE; +FENTANYL CITRATE INJ/PF 100 MCG/2 ML AMPUL ONE; +IBUPROFEN 800 MG in NORMAL SALINE 250 ML IV PRN; -KETOROLAC TROMETHAMINE 0.45% 4 DROP/0.4 ML DROPERETTE OS PRN; +LACTATED RINGERS 1000 ML IV PRN; +LIDOCAINE 0.5% INJ-PF (5 MG/ML) 50 ML SDV SUBCUT PRN; -LIDOCAINE 1% INJ-PF (10 MG/ML) 30 ML SDV ONE; +PROPOFOL INJ 200 MG/20 ML VIAL IV ONE
[2019-03-24] MEDS ORDERED: MORPHINE SULFATE 10 MG/ML INJ IV PRN (08:11)
[2019-03-24] MEDS ORDERED: DIPHENHYDRAMINE HCL 50 MG/ML VIAL IV PRN (08:11)
[2019-03-24] MEDS ORDERED: MEPERIDINE HCL/PF INJ 25 MG/1 ML DISP.SYRIN IV PRN (08:11)
[2019-03-24] MEDS ORDERED: PROMETHAZINE HCL INJ 25 MG/1 ML VIAL IV PRN ×2 (08:11)
[2019-03-24] MEDS ORDERED: FENTANYL CITRATE INJ/PF 100 MCG/2 ML AMPUL IV PRN ×2 (08:11)
[2019-03-24] MEDS ORDERED: BUPIVACAINE HCL 0.25 % INJ/PF (2.5 MG/1 ML) 30 ML VIAL INJ ONE (08:36)
[2019-03-24] MEDS ORDERED: OXYCODONE-ACETAMINOPHEN 5-325 MG TABLET PO PRN (09:52)
[2019-03-24] MEDS ORDERED: ONDANSETRON HCL INJ/PF 4 MG/2 ML SDV IV PRN (09:52)
[2019-03-24] MEDS ORDERED: EPHEDRINE SULFATE INJ 50 MG/1 ML AMPULE ONE (09:57)
[2019-03-24] MEDS ORDERED: DOCUSATE SODIUM 100 MG CAPSULE PO SCH (10:00)
[2019-03-24] MEDS: FENTANYL CITRATE INJ/PF 100 MCG/2 ML AMPUL IV PRN ×2 (10:18→10:31)
[2019-03-24] MEDS ORDERED: FENTANYL CITRATE INJ/PF 100 MCG/2 ML AMPUL ONE (10:19)
[2019-03-24] MEDS ORDERED: ONDANSETRON HCL INJ/PF 4 MG/2 ML SDV ONE (14:00)
[2019-03-24] MEDS ORDERED: LIDOCAINE 2% INJ-PF (20 MG/ML) 2 ML AMPUL ONE (14:00)
[2019-03-24] MEDS ORDERED: SUCCINYLCHOLINE CHLORIDE INJ 200 MG/10 ML VIAL ONE (14:00)
[2019-03-24] MEDS ORDERED: DEXAMETHASONE SOD PHOSPHATE INJ 4 MG/1 ML VIAL ONE (14:00)
[2019-03-24] MEDS ORDERED: PHENYLEPHRINE HCL INJ/PF 10 MG/1 ML SDV ONE (14:00)
--- NOTE | 2019-03-24 14:02 | Operative Report ---
Nonrecallable Operative Report DATE OF SURGERY: 03/24/19 PREOPERATIVE DIAGNOSIS: Primary hyperparathyroidism POSTOPERATIVE DIAGNOSIS: 1. Primary hyperparathyroidism. 2. Large, left inferior parathyroid gland (presumed parathyroid adenoma) OPERATION: 1. 4 gland parathyroid exploration. 2. Excision of left inferior parathyroid adenoma. SURGEON: LATESHA GOLDSTEIN 1ST CRUSHER TENDER: NATIVIDAD SNIDER ANESTHESIA: GA TISSUE REMOVED OR ALTERED: Left inferior parathyroid adenoma COMPLICATIONS: None apparent ESTIMATED BLOOD LOSS: Minimal PROCEDURE: Drains/implants: None. Procedure in detail: After informed consent was obtained, the patient was brought to the operating room and laid in the supine position. The area of the anterior neck was prepped and draped in normal sterile fashion. A 3 cm incision was created in the anterior neck. Dissection was carried through the subcutaneous tissue and through the platysma using electrocautery. The strap muscles were divided in the midline. Attention was then turned to exploration of the left central neck. The thyroid was identified, and spared from injury. Dissection was begun in the left inferior position. Preoperative imaging had localized the parathyroid adenoma to this region. Immediately, there was found to be an extrathyroidal, 3 cm mass posterior lateral to the inferior pole of the thyroid. This was freed from the surrounding tissue using blunt dissection. It was freed from its blood supply using the harmonic scalpel. This was then passed off the field and sent to pathology. Next attention was turned to examination of the remaining 3 glands. The thyroid was retracted medially. The left superior gland was identified in its usual position. It appeared normal. There is no obvious enlargement. Attention was then turned to evaluation of the right neck. The right strap muscles were retracted laterally. The thyroid was very gently retracted medially. Dissection was begun in the inferior pole on the right side. There was an anterior thyroid nodule present on the surface of the gland. The right inferior parathyroid was found posterior lateral to the inferior thyroid artery and gland. It appeared normal. Attention was then turned to examination of the right superior parathyroid gland. It also appeared normal. Once this was confirmed, hemostasis was achieved and the neck was closed. The strap muscles were reapproximated in the midline using 2-0 Vicryl suture. The platysma was reapproximated using 3-0 Vicryl suture in simple interrupted fashion. The overlying skin was closed using 4-0 Vicryl Rapide suture in subcuticular fashion. A dressing was placed, and the procedure was concluded. All sponge, instrument, needle counts were correct x2. Condition: Stable. Natividad Snider PA-C was scrubbed and present the entirety of the procedure. She assisted with all portions of the procedure including opening of the neck, dissection of the parathyroid adenoma, examination of the 4 parathyroid glands, closure of the strap muscles, closure of the platysma, closure of the skin.
[2019-03-24] MEDS: FAMOTIDINE 20 MG TABLET PO SCH ×2 (14:26→21:58)
[2019-03-24] MEDS: CALCIUM CARBONATE 500 MG TAB.CHEW PO SCH ×2 (14:26→17:31)
[2019-03-24] MEDS: KETOROLAC TROMETHAMINE INJ/PF 30 MG/1 ML SDV IV SCH ×2 (14:52→21:58)
[2019-03-24] MEDS ORDERED: ATORVASTATIN CALCIUM 40 MG TABLET PO SCH (22:00)
[2019-03-25] MEDS: KETOROLAC TROMETHAMINE INJ/PF 30 MG/1 ML SDV IV SCH (06:11)
[2019-03-25 06:12] LABS: ALANINE AMINOTRANSFERASE 26 U/L (9-52); ALBUMIN 3.5 g/dL (3.5-5.0); ALKALINE PHOSPHATASE 94 U/L (38-126); ANION GAP 7 (5-19); ASPARTATE AMINO TRANSFERASE 33 U/L (14-36); BILIRUBIN,DIRECT 0.2 mg/dL (0.0-0.4); BILIRUBIN,TOTAL 0.4 mg/dL (0.2-1.3); BLOOD UREA NITROGEN 29 mg/dL (7-20); CALCIUM 9.5 mg/dL (8.4-10.2); CARBON DIOXIDE 23 mmol/L (22-30); CHLORIDE 107 mmol/L (98-107); GLUCOSE 131 mg/dL (75-110); TOTAL PROTEIN 5.9 g/dL (6.3-8.2)
--- NOTE | 2019-03-25 07:53 | PDOC DISCHARGE SUMMARY ---
General - Admit/Disc Date/PCP Admission Date/Primary Care Provider: LOREE CARPENTER MD Discharge Date: 03/25/19 - Discharge Diagnosis (1) Parathyroid adenoma Is this a current diagnosis for this admission?: Yes (2) Primary hyperparathyroidism Is this a current diagnosis for this admission?: Yes - Additional Information Discharge Diet: As Tolerated Discharge Activity: Activity As Tolerated Home Medications: Aspirin [Adult Aspirin Regimen] 81 mg PO DAILY #90 tablet. 02/21/19 Atorvastatin Calcium [Lipitor 40 mg Tablet] 40 mg PO QHS #90 tablet 02/21/19 History of Present Illness History of Present Illness: SONA WORLEY is a 73 year old female admitted for surgical correction of her primary hyperparathyroidism. She had localization studies showing an abnormality in the left inferior pole. She was taken to the OR where a left inferior parathyroid adenoma was excisied. A 4 gland exploration was performed showing 3 other normal glands. Her surgery was completed without incident, and she was taken to the floor in stable condition. Hospital Course Hospital Course: She began tolerating a diet, ambulating, and had no significant complaints. Her PTH level dropped to the normal range after surgery. Her calcium was normal. By post op day #1 She was medically fit for discharge. Physical Exam Vital Signs: Temp Pulse Resp BP Pulse Ox 97.7 F 56 L 16 96/46 L 96 03/25/19 01:00 03/25/19 04:25 03/25/19 01:00 03/25/19 04:25 03/25/19 01:00 Intake & Output 03/24/19 03/25/19 03/26/19 06:59 06:59 06:59 Intake Total 1976 Output Total 1970 Weight 55.34 kg 58.2 kg Results Laboratory Results: 03/25/19 05:35 03/24/19 03/24/19 03/25/19 09:14 10:59 05:35 Sodium 136.9 L Potassium 4.0 Chloride 107 Carbon Dioxide 23 Anion Gap 7 BUN 29 H Creatinine 0.76 Est GFR ( Amer) > 60 Est GFR (Non-Af Amer) > 60 Glucose 131 H Calcium 9.5 Ionized Calcium Rey 1.32 H Total Bilirubin 0.4 AST 33 ALT 26 Alkaline Phosphatase 94 Total Protein 5.9 L Albumin 3.5 PTH Intact 156.3 H 03/25/19 05:35 Sodium Potassium Chloride Carbon Dioxide Anion Gap BUN Creatinine Est GFR ( Amer) Est GFR (Non-Af Amer) Glucose Calcium Ionized Calcium Rey Total Bilirubin AST ALT Alkaline Phosphatase Total Protein Albumin PTH Intact 20.8 Qualifiers - * PATIENT BEING DISCHARGED WITH ANY OF THE FOLLOWING DIAGNOSIS: No Acute Heart Failure - Is this a Heart Failure Patient?: No Plan Discharge Plan: discharge home. diet as tolerated. activity: nonstrenuous. 2 TUMS po BID. ok to shower starting tomorrow.
[2019-03-25 09:23] VITALS: BP 104/53
[2019-03-25] MEDS ORDERED: ASPIRIN 81 MG TABLET, ENT COATED PO SCH (10:00)
== END 2019-03-25 10:30 | disposition home or self-care (01) ==
LOC: OROUT 07:33 → EDSTATUS 08:30 → 5 09:52 → OROUT 12:30 → 5 12:30 → OROUT 03-25 10:30
PROVIDERS: ADMIT Surgery; ATTEND Surgery
PROC: 0GBP0ZZ Excision of Left Inferior Parathyroid Gland, Open Approach (ICD-10-PCS; principal; 2019-03-24 09:00)
DX: E21.0 Primary hyperparathyroidism (principal); D35.1 Benign neoplasm of parathyroid gland; F17.210 Nicotine dependence, cigarettes, uncomplicated; E78.00 Pure hypercholesterolemia, unspecified; Z85.038 Personal history of other malignant neoplasm of large intestine; Z79.82 Long term (current) use of aspirin; Z79.899 Other long term (current) drug therapy; Z01.818 Encounter for other preprocedural examination; Z90.49 Acquired absence of other specified parts of digestive tract; Z85.3 Personal history of malignant neoplasm of breast; Z86.73 Personal history of transient ischemic attack (TIA), and cerebral infarction without residual deficits
CPT/HCPCS: 36415; 80053; 82330; 83970; 88305 ×2; 00320; 60500; G0379; G0378 ×2; A9270 ×4; J0690; J1100; J3490 ×2; J3010; J1885 ×2; J2370; J0330; J2405; J7050; J2704; J1741; 320

== ENCOUNTER 2019-04-21 20:19 | Inpatient (IN) | payer MEDICARE, MEDICAID ==
[2019-04-21] MEDS ORDERED: ACETAMINOPHEN 325 MG TABLET PO ONE (21:00)
[2019-04-21] MEDS ORDERED: NORMAL SALINE 1000 ML 1,000 ML IV ONE (21:38)
[2019-04-21] MEDS ORDERED: IBUPROFEN 400 MG TABLET PO ONE (21:39)
--- NOTE | 2019-04-21 21:40 | ER Document Report ---
ED Medical Screen (RME) - General Chief Complaint: Fever Stated Complaint: FEVER Time Seen by Provider: 04/21/19 21:31 Primary Care Provider: LOREE CARPENTER MD [Primary Care Provider] - Follow up as needed Mode of Arrival: Ambulatory Information source: Patient Notes: Patient presents complaining of fever body aches and decreased appetite for the past 2 weeks. Patient states fever has been off and on. Patient denies any source for the fever. Patient denies any cough congestion abdominal pain or urinary symptoms. Patient was seen at an urgent care and had negative influenza testing. hx: Bowel surgery, thyroid surgery I have greeted and performed a rapid initial assessment of this patient. A comprehensive ED assessment and evaluation of the patient, analysis of test results and completion of the medical decision making process will be conducted by additional ED providers. TRAVEL OUTSIDE OF THE [place] IN LAST 30 DAYS: No - Related Data Allergies/Adverse Reactions: No Known Allergies Allergy (Verified 03/24/19 07:43) Past Medical History - Past Medical History Cardiac Medical History: Pulmonary Medical History: Neurological Medical History: Denies: Hx Cerebrovascular Accident, Hx Seizures Renal/ Medical History: Denies: Hx Ovarian Cysts, Hx Pelvic Inflammatory Disease Malignancy Medical History: Reports: Hx Breast Cancer - RIGHT BREAST CANCER, Hx Colorectal Cancer. Denies: Hx Cervical Cancer, Hx Ovarian Cancer GI Medical History: Denies: Hx Hepatitis Musculoskeltal Medical History: Denies Hx Multiple Sclerosis Psychiatric Medical History: Denies: Hx Dementia Infectious Medical History: Denies: Hx Hepatitis Past Surgical History: Reports: Hx Mastectomy - RIGHT/NO RESTRICTIONS, Other - Left hemicolectomy. Denies: Hx Appendectomy, Hx Bowel Surgery, Hx Section, Hx Cholecystectomy, Hx Coronary Artery Bypass Graft, Hx Gastric Bypass Surgery, Hx Herniorrhaphy, Hx Hysterectomy, Hx Open Heart Surgery, Hx Pacemaker, Hx Tonsillectomy, Hx Tubal Ligation - Immunizations History of Influenza Vaccine for 06/2017 - 11/2017 Season: No Physical Exam - Vital signs Vitals: Temp Pulse Resp BP Pulse Ox 102.9 F H 115 H 22 H 124/59 L 95 04/21/19 20:36 04/21/19 20:36 04/21/19 20:36 04/21/19 20:36 04/21/19 20:36 - General General appearance: Appears well, Alert In distress: None - Cardiovascular Rhythm: Tachycardia Heart sounds: S1 appreciated, S2 appreciated Murmur: No Course - Vital Signs Vital signs: Temp Pulse Resp BP Pulse Ox 102.9 F H 115 H 22 H 124/59 L 95 04/21/19 20:36 04/21/19 20:36 04/21/19 20:36 04/21/19 20:36 04/21/19 20:36 Doctor's Discharge - Discharge Referrals: LOREE CARPENTER MD [Primary Care Provider] - Follow up as needed
--- NOTE | 2019-04-21 22:41 | RADIOLOGY REPORT (SQ) ---
EXAM DESCRIPTION: XR CHEST 2 VIEWS COMPLETED DATE/TME: 04/21/2019 21:38 CLINICAL HISTORY: 73 years, Female, fever COMPARISON: EXAM DESCRIPTION: CLINICAL HISTORY: fever COMPARISON: None. FINDINGS: Two views of the chest are submitted. Clips are in the right axilla. There has been probable right mastectomy. Cardiac silhouette appears normal. No focal parenchymal or pleural disease. No acute bony abnormality. There is no significant pulmonary vascular engorgement. IMPRESSION: No evidence of acute cardiopulmonary disease. NUMBER OF VIEWS: TECHNIQUE: LIMITATIONS: None. FINDINGS: IMPRESSION: copyright 2010 [employer]- All Rights Reserved
[2019-04-21 23:07] LABS: ABSOLUTE LYMPHOCYTES (AUTO) 1.2 10^3/uL (0.5-4.7); ABSOLUTE MONOCYTES (AUTO) 0.7 10^3/uL (0.1-1.4); ABSOLUTE NEUT (AUTO) 7.7 10^3/uL (1.7-8.2); BASOPHILS % (AUTO) 0.4 % (0-2); HEMATOCRIT 37.9 % (36.0-47.0); LYMPHOCYTES % (AUTO) 12.7 % (13-45); MEAN CORPUSCULAR HEMOGLOBIN 30.8 pg (27.0-33.4); MEAN CORPUSCULAR HGB CONC 34.2 g/dL (32.0-36.0); MEAN CORPUSCULAR VOLUME 90 fl (80-97); MONOCYTES % (AUTO) 7.4 % (3-13); PLATELET COUNT 296 10^3/uL (150-450); RED BLOOD COUNT 4.21 10^6/uL (3.72-5.28); RED CELL DISTRIBUTION WIDTH 13.6 % (11.5-14.0); SEGMENTED NEUTROPHILS % (AUTO) 79.5 % (42-78); TOTAL CELLS COUNTED % (AUTO) 100 %; WHITE BLOOD COUNT 9.7 10^3/uL (4.0-10.5)
[2019-04-21 23:13] LABS: APPEARANCE,URINE CLEAR; BILIRUBIN,URINE NEGATIVE (NEGATIVE); COLOR,URINE YELLOW; GLUCOSE, URINE NEGATIVE (NEGATIVE); KETONES,URINE TRACE mg/dL (NEGATIVE); LEUKOCYTE ESTERASE,URINE MODERATE (NEGATIVE); NITRITE,URINE NEGATIVE (NEGATIVE); PROTEIN,URINE NEGATIVE (NEGATIVE); URINE SPECIFIC GRAVITY 1.015
[2019-04-21 23:17] LABS: PROTHROMBIN TIME 14.2 SEC (11.4-15.4)
[2019-04-21 23:24] LABS: ALBUMIN 3.9 g/dL (3.5-5.0); ALKALINE PHOSPHATASE 198 U/L (38-126); ANION GAP 11 (5-19); ASPARTATE AMINO TRANSFERASE 78 U/L (14-36); BILIRUBIN,DIRECT 0.3 mg/dL (0.0-0.4); BILIRUBIN,TOTAL 0.7 mg/dL (0.2-1.3); BLOOD UREA NITROGEN 15 mg/dL (7-20); CALCIUM 8.7 mg/dL (8.4-10.2); CARBON DIOXIDE 21 mmol/L (22-30); CHLORIDE 100 mmol/L (98-107); GLUCOSE 101 mg/dL (75-110); POTASSIUM 4.4 mmol/L (3.6-5.0); TOTAL PROTEIN 6.6 g/dL (6.3-8.2)
[2019-04-22] MEDS ORDERED: NORMAL SALINE 1000 ML 1,000 ML IV ONE (01:21)
[2019-04-22] MEDS ORDERED: CEFTRIAXONE 1 GM/D5W RTU 1 GM/50 ML RTUPB IV ONE (01:26)
--- NOTE | 2019-04-22 01:26 | ER Document Report ---
ED Fever - General Chief Complaint: Fever Stated Complaint: FEVER Time Seen by Provider: 04/21/19 21:31 Mode of Arrival: Ambulatory Notes: Patient is a 73-year-old female that comes to the emergency department for chief complaint of fever. She states that she has felt like she has been running fevers for almost 2 weeks with frequent hot and cold spells, over the past few days she has felt a lot of body aches and tiredness as well. She denies shortness of breath, cough, sore throat, congestion, abdominal pain, vomiting, diarrhea, chest pain. She states now she feels fine except she just feels tired. Past medical history includes former breast cancer with mastectomy (completed treatments), TIA, thyroidectomy, partial bowel resection. She lives at home. TRAVEL OUTSIDE OF THE [place] IN LAST 30 DAYS: No - Related Data Allergies/Adverse Reactions: No Known Allergies Allergy (Verified 04/21/19 22:52) Past Medical History - General Information source: Patient - Social History Smoking Status: Never Smoker Frequency of alcohol use: None Drug Abuse: None Lives with: Family Family History: Reviewed & Not Pertinent Patient has suicidal ideation: No Patient has homicidal ideation: No - Past Medical History Cardiac Medical History: Pulmonary Medical History: Neurological Medical History: Denies: Hx Cerebrovascular Accident, Hx Seizures Renal/ Medical History: Denies: Hx Ovarian Cysts, Hx Peritoneal Dialysis, Hx Pelvic Inflammatory Disease Malignancy Medical History: Reports: Hx Breast Cancer - RIGHT BREAST CANCER, Hx Colorectal Cancer. Denies: Hx Cervical Cancer, Hx Ovarian Cancer GI Medical History: Denies: Hx Hepatitis Musculoskeletal Medical History: Denies Hx Multiple Sclerosis Psychiatric Medical History: Denies: Hx Dementia Infectious Medical History: Denies: Hx Hepatitis Past Surgical History: Reports: Hx Mastectomy - RIGHT/NO RESTRICTIONS, Other - Left hemicolectomy. Denies: Hx Appendectomy, Hx Bowel Surgery, Hx Section, Hx Cholecystectomy, Hx Coronary Artery Bypass Graft, Hx Gastric Bypass Surgery, Hx Herniorrhaphy, Hx Hysterectomy, Hx Open Heart Surgery, Hx Pacemaker, Hx Tonsillectomy, Hx Tubal Ligation - Immunizations Immunizations up to date: Yes Hx Diphtheria, Pertussis, Tetanus Vaccination: Yes Hx Pneumococcal Vaccination: 06/15/16 Review of Systems - Review of Systems Constitutional: See HPI EENT: No symptoms reported Cardiovascular: No symptoms reported Respiratory: No symptoms reported Gastrointestinal: No symptoms reported Genitourinary: No symptoms reported Female Genitourinary: No symptoms reported Musculoskeletal: No symptoms reported Skin: No symptoms reported Hematologic/Lymphatic: No symptoms reported Neurological/Psychological: No symptoms reported Physical Exam - Vital signs Vitals: Temp Pulse Resp BP Pulse Ox 102.9 F H 115 H 22 H 124/59 L 95 04/21/19 20:36 04/21/19 20:36 04/21/19 20:36 04/21/19 20:36 04/21/19 20:36 - Notes Notes: GENERAL: Alert, interacts well. No acute distress. HEAD: Normocephalic, atraumatic. EYES: Pupils equal, round, and reactive to light. Extraocular movements intact. ENT: Oral mucosa moist, tongue midline. Oropharynx unremarkable. Airway patent. NECK: Full range of motion. Supple. Trachea midline. No nuchal rigidity. LUNGS: Clear to auscultation bilaterally, no wheezes, rales, or rhonchi. No respiratory distress. HEART: Regular rate and rhythm. No murmur ABDOMEN: Soft, non-tender. Non-distended. Bowel sounds present in all 4 quadrants. GENITOURINARY: Deferred EXTREMITIES: Moves all 4 extremities spontaneously. No edema, normal radial and dorsalis pedis pulses bilaterally. No cyanosis. BACK: no cervical, thoracic, lumbar midline tenderness. No saddle anesthesia, normal distal neurovascular exam. Moves all extremities in full range of motion. NEUROLOGICAL: Alert and oriented x3. Normal speech. Cranial nerves II through XII grossly intact. PSYCH: Normal affect, normal mood. SKIN: Warm, dry, normal turgor. No rashes or lesions noted. Course - Re-evaluation Re-evalutation: Patient is actually well-appearing. Initially she was febrile at 102.9, this resolved with acetaminophen and ibuprofen from triage, she was initially tachycardic as well. She has a soft abdomen, denies headache, has no nuchal rigidity, has a normal neurological exam, unremarkable skin exam, clear lungs, no current complaints. CBC unremarkable, nonspecific with mild hyponatremia, lactic acid is not elevated. Chest x-ray without concerning findings. Urinalysis does suggest an infection although does not suggest a severe infection. Cultures of blood and urine were both placed. Given Rocephin. Patient unfortunately began to become hypotensive, her systolic blood pressure dropped down to 87, this was rechecked and confirmed. Patient was given IV fluids, this did respond, blood pressure did come up to 101 systolic on my reevaluation. She still has no complaints, however because of her fever, advanced age, initial tachycardia, hypotension, suspected urinary tract infection, I am concerned about sending her home. Recommended patient be admitted with blood cultures, urine cultures, antibiotics. Levaquin was added for more coverage. Patient does state agreement with this plan. 2 good peripheral IVs are in place. Patient is not tachycardic, because she responded to IV fluids I do not feel she needs a central line or pressors at this time. 04/22/19 02:[address] Sierra, on-call for Dr. Shi patient's primary care provider, patient admitted to the [facility]. - Vital Signs Vital signs: Temp Pulse Resp BP Pulse Ox 98.5 F 61 17 99/55 L 95 04/22/19 04:58 04/22/19 04:58 04/22/19 04:31 04/22/19 04:31 04/21/19 20:36 - Laboratory Result Diagrams: 04/21/19 22:32 04/21/19 22:32 Laboratory results interpreted by me: 04/21/19 04/21/19 04/21/19 22:32 22:32 22:32 Seg Neutrophils % 79.5 H Lymphocytes % 12.7 L Sodium 132.4 L Carbon Dioxide 21 L AST 78 H Alkaline Phosphatase 198 H Urine Ketones TRACE H Urine Blood SMALL H Urine Urobilinogen 2.0 H Ur Leukocyte Esterase MODERATE H Discharge - Discharge Clinical Impression: Fever Qualifiers: Fever type: unspecified Qualified Code(s): R50.9 - Fever, unspecified Hypotension Qualifiers: Hypotension type: unspecified hypotension type Qualified Code(s): I95.9 - Hypotension, unspecified Urinary tract infection Qualifiers: Urinary tract infection type: site unspecified Hematuria presence: without hematuria Qualified Code(s): N39.0 - Urinary tract infection, site not specified Condition: Stable Disposition: ADMITTED INPATIENT Admitting Provider: Rigo - for Dr. Shi Unit Admitted: [facility]
[2019-04-22] MEDS ORDERED: CEFTRIAXONE INJ 1000 MG VIAL IV ONE (01:44)
[2019-04-22] MEDS ORDERED: LEVOFLOXACIN 750 MG/D5W RTU 750 MG/150 ML RTUPB IV ONE (02:19)
[2019-04-22 04:05] LABS: VENOUS BLOOD BASE EXCESS -1.7 mmol/L; VENOUS BLOOD HCO3 23.5 mmol/L (20-32); VENOUS BLOOD PCO2 41.5 mmHg (35-63); VENOUS BLOOD PH 7.37 (7.30-7.42)
[2019-04-22] MEDS ORDERED: CEFEPIME 2 GM/D5W RTU 2 GM/50 ML RTUPB IV SCH (06:00)
[2019-04-22] MEDS: PANTOPRAZOLE SODIUM 20 MG TABLET.DR PO SCH (06:14)
[2019-04-22] MEDS: NORMAL SALINE 1000 ML 1,000 ML IV PRN ×2 (07:44→17:23)
--- NOTE | 2019-04-22 09:20 | EKG REPORT ---
SEVERITY:- BORDERLINE ECG - SINUS RHYTHM BORDERLINE T WAVE ABNORMALITIES : Confirmed by: Darnell Pelayo MD 22-Apr-2019 09:19:56
[2019-04-22] MEDS: CEFEPIME HCL 2 GM in DEXTROSE 5%-WATER 50 ML IV SCH ×2 (10:13→21:39)
--- NOTE | 2019-04-22 11:14 | PDOC H&P ---
History of Present Illness Admission Date/PCP: 04/22/19 02:44 LOREE CARPENTER MD Patient complains of: Fever History of Present Illness: SONA WORLEY is a 73 year old female This is a 73-year-old female's with a history of the hyperlipidemia and no other medical problems came to the emergency department with a complaining of fever since on and off for the last 2 weeks and patients feel like a hot and cold spell and night sweats Patient is denied any cough denied any chest pain to than any shortness throat denied any abdominal pain no nausea no vomiting Patient denied any insect bites Denied any recent traveling Denied any contact with sick persons Patient's also feeling tired and fatigue and the patient went to the urgent care and patient was sent to the ER In the emergency department patient was hypotensive and possible UTI and patient received the IV antibiotic and IV fluid When I saw the patient in the floor doing well denied any chest pain to than any shortness of the breath When reviewing the history patient had a thyroidectomy done 2 months back's thus the only new things Patient had a history of the breast cancer with the mastectomy patients only take the medicine at cholesterol but other than that no other medicines Past Medical History Cardiac Medical History: Pulmonary Medical History: Neurological Medical History: Denies: Seizures Malignancy Medical History: Reports: Breast Cancer - RIGHT BREAST CANCER Denies: Cervical Cancer, Ovarian Cancer GI Medical History: Denies: Hepatitis Musculoskeltal Medical History: Psychiatric Medical History: Denies: Dementia Hematology: Past Surgical History Past Surgical History: Reports: Mastectomy - RIGHT/NO RESTRICTIONS, Other - Left hemicolectomy Denies: Appendectomy, Section, Cholecystectomy, Coronary Artery Bypass Graft, Gastric Bypass Surgery, Herniorrhaphy, Hysterectomy, Pacemaker, Tonsillectomy, Tubal Ligation Social History Information Source: Patient Lives with: Family Smoking Status: Never Smoker Frequency of Alcohol Use: None Hx Recreational Drug Use: No Drugs: None Hx Prescription Drug Abuse: No Family History Family History: Reviewed & Not Pertinent Parental Family History Reviewed: Yes Children Family History Reviewed: Yes Sibling(s) Family History Reviewed.: Yes Medication/Allergy Allergies/Adverse Reactions: No Known Allergies Allergy (Verified 04/21/19 22:52) Review of Systems Constitutional: PRESENT: chills, fever(s), night sweats. ABSENT: headache(s), weight gain, weight loss Eyes: ABSENT: visual disturbances Ears: ABSENT: hearing changes Cardiovascular: ABSENT: chest pain, dyspnea on exertion, edema, orthropnea, palpitations Respiratory: ABSENT: cough, hemoptysis Gastrointestinal: ABSENT: abdominal pain, constipation, diarrhea, hematemesis, hematochezia, nausea, vomiting Genitourinary: ABSENT: dysuria, hematuria Musculoskeletal: ABSENT: joint swelling Integumentary: ABSENT: rash, wounds Neurological: ABSENT: abnormal gait, abnormal speech, confusion, dizziness, focal weakness, syncope Psychiatric: ABSENT: anxiety, depression, homidical ideation, suicidal ideation Endocrine: ABSENT: cold intolerance, heat intolerance, menstrual abnormalities, polydipsia, polyuria Hematologic/Lymphatic: ABSENT: easy bleeding, easy bruising, lymphadenopathy Physical Exam Vital Signs: Temp Pulse Resp BP Pulse Ox 98.4 F 68 18 100/61 96 04/22/19 08:01 04/22/19 08:01 04/22/19 08:01 04/22/19 08:01 04/22/19 08:01 Intake & Output 04/21/19 04/22/19 04/23/19 06:59 06:59 06:59 Intake Total 1999 200 Balance 2000 200 Weight 53.7 kg General appearance: PRESENT: no acute distress, well-developed, well-nourished Head exam: PRESENT: atraumatic, normocephalic Eye exam: PRESENT: conjunctiva pink, EOMI, PERRLA. ABSENT: scleral icterus Ear exam: PRESENT: normal external ear exam Mouth exam: PRESENT: moist, tongue midline Neck exam: PRESENT: full ROM. ABSENT: carotid bruit, JVD, lymphadenopathy, thyromegaly Respiratory exam: PRESENT: clear to auscultation brett Cardiovascular exam: PRESENT: RRR. ABSENT: diastolic murmur, rubs, systolic murmur Pulses: PRESENT: normal dorsalis pedis pul, +2 pedal pulses bilateral Vascular exam: PRESENT: normal capillary refill GI/Abdominal exam: PRESENT: normal bowel sounds, soft. ABSENT: distended, guarding, mass, organolmegaly, rebound, tenderness Rectal exam: PRESENT: deferred Extremities exam: ABSENT: pedal edema Musculoskeletal exam: PRESENT: ambulatory Neurological exam: PRESENT: alert, awake, oriented to person, oriented to place, oriented to time, oriented to situation, CN II-XII grossly intact. ABSENT: motor sensory deficit Psychiatric exam: PRESENT: appropriate affect, normal mood. ABSENT: homicidal ideation, suicidal ideation Skin exam: PRESENT: dry, intact, warm. ABSENT: cyanosis, rash Results Laboratory Results: 04/21/19 22:32 04/21/19 22:32 04/21/19 04/21/19 04/21/19 22:32 22:32 22:32 WBC 9.7 RBC 4.21 Hgb 13.0 Hct 37.9 MCV 90 MCH 30.8 MCHC 34.2 RDW 13.6 Plt Count 296 Seg Neutrophils % 79.5 H Lymphocytes % 12.7 L Monocytes % 7.4 Eosinophils % 0.0 Basophils % 0.4 Absolute Neutrophils 7.7 Absolute Lymphocytes 1.2 Absolute Monocytes 0.7 Absolute Eosinophils 0.0 Absolute Basophils 0.0 VBG pH VBG pCO2 VBG HCO3 VBG Base Excess Sodium 132.4 L Potassium 4.4 Chloride 100 Carbon Dioxide 21 L Anion Gap 11 BUN 15 Creatinine 0.73 Est GFR ( Amer) > 60 Est GFR (Non-Af Amer) > 60 Glucose 101 Lactic Acid 0.7 Calcium 8.7 Total Bilirubin 0.7 AST 78 H Alkaline Phosphatase 198 H Total Protein 6.6 Albumin 3.9 Urine Color Urine Appearance Urine pH Ur Specific [place] Urine Protein Urine Glucose (UA) Urine Ketones Urine Blood Urine Nitrite Ur Leukocyte Esterase Urine WBC (Auto) Urine RBC (Auto) 04/21/19 04/22/19 22:32 03:40 WBC RBC Hgb Hct MCV MCH MCHC RDW Plt Count Seg Neutrophils % Lymphocytes % Monocytes % Eosinophils % Basophils % Absolute Neutrophils Absolute Lymphocytes Absolute Monocytes Absolute Eosinophils Absolute Basophils VBG pH 7.37 VBG pCO2 41.5 VBG HCO3 23.5 VBG Base Excess -1.7 Sodium Potassium Chloride Carbon Dioxide Anion Gap BUN Creatinine Est GFR ( Amer) Est GFR (Non-Af Amer) Glucose Lactic Acid Calcium Total Bilirubin AST Alkaline Phosphatase Total Protein Albumin Urine Color YELLOW Urine Appearance CLEAR Urine pH 7.0 Ur Specific [place] 1.015 Urine Protein NEGATIVE Urine Glucose (UA) NEGATIVE Urine Ketones TRACE H Urine Blood SMALL H Urine Nitrite NEGATIVE Ur Leukocyte Esterase MODERATE H Urine WBC (Auto) 10 Urine RBC (Auto) 13 Impressions: Chest X-Ray 04/21/19 21:38 IMPRESSION: No evidence of acute cardiopulmonary disease. NUMBER OF VIEWS: TECHNIQUE: LIMITATIONS: None. FINDINGS: IMPRESSION: copyright 2010 [employer]- All Rights Reserved Assessment & Plan - Diagnosis (1) Fever Qualifiers: Fever type: unspecified Qualified Code(s): R50.9 - Fever, unspecified Is this a current diagnosis for this admission?: Yes Plan: Possible underlying UTI continues IV antibiotics Will check the other etiologies while patient is on and off fever for the last 2 weeks (2) Hypotension Qualifiers: Hypotension type: unspecified hypotension type Qualified Code(s): I95.9 - Hypotension, unspecified Is this a current diagnosis for this admission?: Yes Plan: IV fluids (3) Urinary tract infection Qualifiers: Urinary tract infection type: site unspecified Hematuria presence: without hematuria Qualified Code(s): N39.0 - Urinary tract infection, site not specified Is this a current diagnosis for this admission?: Yes Plan: Continues to IV antibiotic (4) Colon cancer Qualifiers: Colon location: unspecified part of colon Qualified Code(s): C18.9 - Malignant neoplasm of colon, unspecified Is this a current diagnosis for this admission?: Yes (5) Parathyroid adenoma Is this a current diagnosis for this admission?: Yes Plan: Status post surgery 2 months back (6) TIA (transient ischemic attack) Is this a current diagnosis for this admission?: Yes Plan: Continues to aspirin and statin - Time Time Spent: 30 to 50 Minutes Medications reviewed and adjusted accordingly: Yes Anticipated discharge: Home Within: Other - Inpatient Certification Based on my medical assessment, after consideration of the patient's comorbidities, presenting symptoms, or acuity I expect that the services needed warrant INPATIENT care.: Yes I certify that my determination is in accordance with my understanding of Medicare's requirements for reasonable and necessary INPATIENT services [42 CFR 412.3e].: Yes Medical Necessity: Need For IV Fluids, Need for IV Antibiotics Post Hospital Care: D/C Architecture Intern Documentation - Plan Summary Plan Summary: See MD orders
[2019-04-22 12:42] LABS: FREE T4 (FREE THYROXINE) 1.14 ng/dL (0.78-2.19)
[2019-04-22 12:56] LABS: THYROID STIMULATING HORMONE 1.58 uIU/mL (0.47-4.68)
[2019-04-22] MEDS: ACETAMINOPHEN 325 MG TABLET PO PRN (20:25)
[2019-04-22] MEDS: ATORVASTATIN CALCIUM 20 MG TABLET PO SCH (21:39)
[2019-04-23] MEDS: NORMAL SALINE 1000 ML 1,000 ML IV PRN ×3 (05:14→18:51)
[2019-04-23] MEDS: PANTOPRAZOLE SODIUM 20 MG TABLET.DR PO SCH (05:14)
[2019-04-23 06:36] LABS: ABSOLUTE LYMPHOCYTES (AUTO) 1.7 10^3/uL (0.5-4.7); ABSOLUTE MONOCYTES (AUTO) 0.8 10^3/uL (0.1-1.4); ABSOLUTE NEUT (AUTO) 5.1 10^3/uL (1.7-8.2); BASOPHILS % (AUTO) 0.4 % (0-2); EOSINOPHILS % (AUTO) 0.4 % (0-6); HEMATOCRIT 36.2 % (36.0-47.0); HEMOGLOBIN 12.2 g/dL (12.0-15.5); LYMPHOCYTES % (AUTO) 22.4 % (13-45); MEAN CORPUSCULAR HGB CONC 33.6 g/dL (32.0-36.0); MEAN CORPUSCULAR VOLUME 90 fl (80-97); MONOCYTES % (AUTO) 10.9 % (3-13); PLATELET COUNT 231 10^3/uL (150-450); RED BLOOD COUNT 4.05 10^6/uL (3.72-5.28); RED CELL DISTRIBUTION WIDTH 13.6 % (11.5-14.0); SEGMENTED NEUTROPHILS % (AUTO) 65.9 % (42-78); TOTAL CELLS COUNTED % (AUTO) 100 %; WHITE BLOOD COUNT 7.7 10^3/uL (4.0-10.5)
[2019-04-23 06:58] LABS: ALBUMIN 3.1 g/dL (3.5-5.0); ALKALINE PHOSPHATASE 195 U/L (38-126); ANION GAP 8 (5-19); ASPARTATE AMINO TRANSFERASE 67 U/L (14-36); BILIRUBIN,DIRECT 0.3 mg/dL (0.0-0.4); BILIRUBIN,TOTAL 0.4 mg/dL (0.2-1.3); BLOOD UREA NITROGEN 11 mg/dL (7-20); CALCIUM 8.3 mg/dL (8.4-10.2); CARBON DIOXIDE 22 mmol/L (22-30); CHLORIDE 108 mmol/L (98-107); GLUCOSE 91 mg/dL (75-110); POTASSIUM 4.3 mmol/L (3.6-5.0); TOTAL PROTEIN 5.5 g/dL (6.3-8.2)
[2019-04-23] MEDS: CEFEPIME HCL 2 GM in DEXTROSE 5%-WATER 50 ML IV SCH ×2 (09:06→21:59)
[2019-04-23] MEDS: ASPIRIN 81 MG TABLET, ENT COATED PO SCH (09:06)
--- NOTE | 2019-04-23 09:11 | RADIOLOGY REPORT (SQ) ---
EXAM DESCRIPTION: U/S ABDOMEN COMPLETE W/O DOP COMPLETED DATE/TIME: 04/23/2019 6:13 am REASON FOR STUDY: mono/r/o enlrge spleen COMPARISON: None. TECHNIQUE: Dynamic and static grayscale images acquired of the abdomen and recorded on PACS. Additio nal selected color Doppler and spectral images recorded. Note: Study does not meet criteria for complete doppler/duplex scan LIMITATIONS: None. FINDINGS: PANCREAS: No masses. Visualized pancreatic duct normal caliber. LIVER: No masses. Echotexture normal. LIVER VASCULATURE: Normal directional flow of the main portal vein and hepatic veins. GALLBLADDER: No stones. Normal wall thickness. No pericholecystic fluid. ULTRASOUND-DETECTED REYES'S SIGN: Negative. INTRAHEPATIC DUCTS AND COMMON DUCT: CBD and intrahepatic ducts normal caliber. No filling defects. INFERIOR VENA CAVA: Normal flow. AORTA: No aneurysm. RIGHT KIDNEY: Normal size. Normal echogenicity. No solid or suspicious masses. No hydronephros is. No calcifications. LEFT KIDNEY: Normal size. Normal echogenicity. No solid or suspicious masses. No hydronephrosi s. No calcifications. SPLEEN: Normal size. No solid masses. PERITONEAL AND PLEURAL SPACES: Trace ascites versus pleural effusion on the right. OTHER: No other significant finding. IMPRESSION: Normal size spleen. Trace ascites versus pleural effusion on the right. TECHNICAL DOCUMENTATION: JOB ID: [id number] [employer]- All Rights Reserved Reading location - IP/workstation name: [email or web address]
--- NOTE | 2019-04-23 11:39 | PDOC PROGRESS REPORT ---
Subjective Progress Note for:: 04/23/19 Subjective:: Patient is feeling much better Patient fever is coming down Mononucleosis test is positive which explains some fever but still put 2 weeks questionable Ultrasound of the abdomen did not suggest any enlarged spleen's and did not suggest any liver issues Blood culture is negative's urine culture is still pending Reason For Visit: SEPSIS Physical Exam Vital Signs: Temp Pulse Resp BP Pulse Ox 100.4 F 94 16 136/57 H 92 04/23/19 08:01 04/23/19 08:01 04/23/19 08:01 04/23/19 08:01 04/23/19 08:01 Intake & Output 04/22/19 04/23/19 04/24/19 06:59 06:59 06:59 Intake Total 1999 3240 50 Output Total 1800 Balance 1999 1440 50 Weight 53.7 kg 52.8 kg General appearance: PRESENT: no acute distress, well-developed, well-nourished Head exam: PRESENT: atraumatic, normocephalic Eye exam: PRESENT: conjunctiva pink, EOMI, PERRLA. ABSENT: scleral icterus Ear exam: PRESENT: normal external ear exam Mouth exam: PRESENT: moist, tongue midline Neck exam: PRESENT: full ROM. ABSENT: carotid bruit, JVD, lymphadenopathy, thyromegaly Respiratory exam: PRESENT: clear to auscultation brett Cardiovascular exam: PRESENT: RRR. ABSENT: diastolic murmur, rubs, systolic murmur Pulses: PRESENT: normal dorsalis pedis pul, +2 pedal pulses bilateral Vascular exam: PRESENT: normal capillary refill GI/Abdominal exam: PRESENT: normal bowel sounds, soft. ABSENT: distended, guard ing, mass, organolmegaly, rebound, tenderness Rectal exam: PRESENT: deferred Musculoskeletal exam: PRESENT: ambulatory Neurological exam: PRESENT: alert, awake, oriented to person, oriented to place, oriented to time, oriented to situation, CN II-XII grossly intact. ABSENT: motor sensory deficit Psychiatric exam: PRESENT: appropriate affect, normal mood. ABSENT: homicidal ideation, suicidal ideation Skin exam: PRESENT: dry, intact, warm. ABSENT: cyanosis, rash Results Laboratory Results: 04/23/19 04:45 04/23/19 04:45 04/22/19 04/23/19 04/23/19 11:40 04:45 04:45 WBC 7.7 RBC 4.05 Hgb 12.2 Hct 36.2 MCV 90 MCH 30.0 MCHC 33.6 RDW 13.6 Plt Count 231 Seg Neutrophils % 65.9 Lymphocytes % 22.4 Monocytes % 10.9 Eosinophils % 0.4 Basophils % 0.4 Absolute Neutrophils 5.1 Absolute Lymphocytes 1.7 Absolute Monocytes 0.8 Absolute Eosinophils 0.0 Absolute Basophils 0.0 Sodium 137.5 Potassium 4.3 Chloride 108 H Carbon Dioxide 22 Anion Gap 8 BUN 11 Creatinine 0.65 Est GFR ( Amer) > 60 Est GFR (Non-Af Amer) > 60 Glucose 91 Calcium 8.3 L Total Bilirubin 0.4 AST 67 H Alkaline Phosphatase 195 H Total Protein 5.5 L Albumin 3.1 L TSH 1.58 Free T4 1.14 Impressions: Chest X-Ray 04/21/19 21:38 IMPRESSION: No evidence of acute cardiopulmonary disease. NUMBER OF VIEWS: TECHNIQUE: LIMITATIONS: None. FINDINGS: IMPRESSION: copyright 2010 [employer]- All Rights Reserved Abdomen Ultrasound 04/22/19 00:00 IMPRESSION: Normal size spleen. Trace ascites versus pleural effusion on the right. Assessment & Plan - Diagnosis (1) Fever Qualifiers: Fever type: unspecified Qualified Code(s): R50.9 - Fever, unspecified Is this a current diagnosis for this admission?: Yes Plan: Patient urine culture is still pending Continues to IV antibiotic More notices positive Patient on no sore throat (2) Hypotension Qualifiers: Hypotension type: unspecified hypotension type Qualified Code(s): I95.9 - Hypotension, unspecified Is this a current diagnosis for this admission?: Yes Plan: IV fluids (3) Urinary tract infection Qualifiers: Urinary tract infection type: site unspecified Hematuria presence: without hematuria Qualified Code(s): N39.0 - Urinary tract infection, site not specified Is this a current diagnosis for this admission?: Yes Plan: Continues to IV antibiotic (4) Colon cancer Qualifiers: Colon location: unspecified part of colon Qualified Code(s): C18.9 - Malignant neoplasm of colon, unspecified Is this a current diagnosis for this admission?: Yes (5) Parathyroid adenoma Is this a current diagnosis for this admission?: Yes Plan: Status post surgery 2 months back (6) TIA (transient ischemic attack) Is this a current diagnosis for this admission?: Yes (7) Mononucleosis Qualifiers: Infectious mononucleosis etiology: unspecified organism Is this a current diagnosis for this admission?: Yes Plan: Continues to IV fluid supportive treatments - Time Time Spent with patient: 15-24 minutes Medications reviewed and adjusted accordingly: Yes Anticipated discharge: Home Within: within 24 hours - Plan Summary Plan Summary: Wait for the urine culture Continues to IV antibiotic
[2019-04-23] MEDS: ATORVASTATIN CALCIUM 20 MG TABLET PO SCH (21:59)
[2019-04-24 04:41] LABS: ABSOLUTE EOSINOPHILS # (AUTO) 0.1 10^3/uL (0.0-0.6); ABSOLUTE LYMPHOCYTES (AUTO) 1.7 10^3/uL (0.5-4.7); ABSOLUTE NEUT (AUTO) 6.1 10^3/uL (1.7-8.2); BASOPHILS % (AUTO) 0.4 % (0-2); EOSINOPHILS % (AUTO) 0.7 % (0-6); HEMATOCRIT 33.5 % (36.0-47.0); HEMOGLOBIN 11.3 g/dL (12.0-15.5); LYMPHOCYTES % (AUTO) 19.4 % (13-45); MEAN CORPUSCULAR HEMOGLOBIN 30.1 pg (27.0-33.4); MEAN CORPUSCULAR HGB CONC 33.7 g/dL (32.0-36.0); MEAN CORPUSCULAR VOLUME 89 fl (80-97); MONOCYTES % (AUTO) 11.3 % (3-13); PLATELET COUNT 232 10^3/uL (150-450); RED BLOOD COUNT 3.75 10^6/uL (3.72-5.28); RED CELL DISTRIBUTION WIDTH 13.6 % (11.5-14.0); SEGMENTED NEUTROPHILS % (AUTO) 68.2 % (42-78); TOTAL CELLS COUNTED % (AUTO) 100 %
[2019-04-24 05:13] LABS: ANION GAP 6 (5-19); BLOOD UREA NITROGEN 10 mg/dL (7-20); CALCIUM 8.2 mg/dL (8.4-10.2); CARBON DIOXIDE 23 mmol/L (22-30); CHLORIDE 106 mmol/L (98-107); GLUCOSE 96 mg/dL (75-110); POTASSIUM 3.9 mmol/L (3.6-5.0)
[2019-04-24] MEDS: PANTOPRAZOLE SODIUM 20 MG TABLET.DR PO SCH (05:22)
[2019-04-24] MEDS: ACETAMINOPHEN 325 MG TABLET PO PRN (05:24)
[2019-04-24] MEDS: NORMAL SALINE 1000 ML 1,000 ML IV PRN (09:28)
[2019-04-24] MEDS: CEFEPIME HCL 2 GM in DEXTROSE 5%-WATER 50 ML IV SCH (09:28)
[2019-04-24] MEDS: ASPIRIN 81 MG TABLET, ENT COATED PO SCH (09:29)
--- NOTE | 2019-04-24 19:50 | PDOC DISCHARGE SUMMARY ---
General - Admit/Disc Date/PCP Admission Date/Primary Care Provider: 04/22/19 02:44 LOREE CARPENTER MD Discharge Date: 04/24/19 - Additional Information Prescriptions: Ciprofloxacin HCl [Cipro 500 mg Tablet] 500 mg PO Q12 #10 tablet Home Medications: Aspirin [Ecotrin 81 mg EC Tablet] 81 mg PO DAILY 04/22/19 Atorvastatin Calcium [Lipitor 20 mg Tablet] 20 mg PO QHS 04/22/19 Ciprofloxacin HCl [Cipro 500 mg Tablet] 500 mg PO Q12 #10 tablet 04/24/19 History of Present Illness History of Present Illness: SONA WORLEY is a 73 year old female, She has a history of hyperlipidemia, she came to the emergency room on 04/22/2019 for evaluation of fever for 2 weeks, She denies any history of recent travel outside the [place], she has a history of right breast cancer status post right mastectomy history of colon cancer status post right hemicolectomy Hospital Course Hospital Course: Patient was seen by the bedside she was admitted 2 days ago for evaluation of fever of 2 days duration, it was felt that patient urinary tract was the cause of the fever she was treated empirically with IV antibiotic ,I saw her by the bedside today, she wants to go home she feels much better Physical Exam Vital Signs: Temp Pulse Resp BP Pulse Ox 98.6 F 74 16 109/63 94 04/24/19 19:29 04/24/19 19:29 04/24/19 19:29 04/24/19 19:29 04/24/19 19:29 Intake & Output 04/23/19 04/24/19 04/25/19 06:59 06:59 06:59 Intake Total 3240 1993 163 Output Total 1800 Balance 1440 1993 163 Weight 52.8 kg 56.5 kg General appearance: PRESENT: no acute distress, well-developed, well-nourished Head exam: PRESENT: atraumatic, normocephalic Eye exam: PRESENT: conjunctiva pink, EOMI, PERRLA Mouth exam: PRESENT: moist Neck exam: PRESENT: full ROM Respiratory exam: PRESENT: clear to auscultation brett Cardiovascular exam: PRESENT: +S1, +S2 Vascular exam: PRESENT: normal capillary refill GI/Abdominal exam: PRESENT: normal bowel sounds, soft Rectal exam: PRESENT: deferred Neurological exam: PRESENT: alert, CN II-XII grossly intact Psychiatric exam: PRESENT: appropriate affect, normal mood Skin exam: PRESENT: dry, intact, warm Results Laboratory Results: 04/24/19 04:24 04/24/19 04:24 04/24/19 04/24/19 04:24 04:24 WBC 9.0 RBC 3.75 Hgb 11.3 L Hct 33.5 L MCV 89 MCH 30.1 MCHC 33.7 RDW 13.6 Plt Count 232 Seg Neutrophils % 68.2 Lymphocytes % 19.4 Monocytes % 11.3 Eosinophils % 0.7 Basophils % 0.4 Absolute Neutrophils 6.1 Absolute Lymphocytes 1.7 Absolute Monocytes 1.0 Absolute Eosinophils 0.1 Absolute Basophils 0.0 Sodium 134.7 L Potassium 3.9 Chloride 106 Carbon Dioxide 23 Anion Gap 6 BUN 10 Creatinine 0.54 Est GFR ( Amer) > 60 Est GFR (Non-Af Amer) > 60 Glucose 96 Calcium 8.2 L 04/21/19 22:32 Clean Catch Midstream Urine Culture - Final Mixed Urogenital Jessi Impressions: Chest X-Ray 04/21/19 21:38 IMPRESSION: No evidence of acute cardiopulmonary disease. NUMBER OF VIEWS: TECHNIQUE: LIMITATIONS: None. FINDINGS: IMPRESSION: copyright 2010 [employer]- All Rights Reserved Abdomen Ultrasound 04/22/19 00:00 IMPRESSION: Normal size spleen. Trace ascites versus pleural effusion on the right. Qualifiers - * PATIENT BEING DISCHARGED WITH ANY OF THE FOLLOWING DIAGNOSIS: No VTE patient discharged on overlapping Therapy?: No Reason(s) for not prescribing Overlap Therapy:: Not indicated Stroke Pt being discharged on Anti-thrombolytic therapy?: No Reason(s) for not prescribing Anti-thrombolytic therapy:: Not indicated Stroke Pt being discharged on Anti-coagulation therapy?: No Reason(s) for not prescribing Anti-coagulation therapy:: Not indicated Stroke Pt being discharged on Statins?: No Reason(s) for not prescribing Statins therapy:: Not indicated AR Pt being discharged on Aspirin therapy?: No Reason(s) for not prescribing Aspirin therapy:: Not indicated AR Pt being discharged on Statins?: No Reason(s) for not prescribing Statin therapy:: Not indicated AR Pt discharged ACEI/ARBS?: No Reason(s) for not prescribing ACEI/ARBS:: Not indicated Acute Heart Failure - Is this a Heart Failure Patient?: No e) For LVEF <35%, discharged on Aldosterone antagonist?: N/A (LVEF > or = 35%)
[2019-04-24 20:20] VITALS: BP 105/63
== END 2019-04-24 20:50 | disposition home or self-care (01) | DRG 683 ==
LOC: ER 20:19 → EH 04-22 02:44 → 3S 04-22 05:21
PROVIDERS: ADMIT Internal Medicine; ATTEND Internal Medicine
DX: N17.9 Acute kidney failure, unspecified (principal); G45.9 Transient cerebral ischemic attack, unspecified; C18.9 Malignant neoplasm of colon, unspecified; E78.5 Hyperlipidemia, unspecified; I95.9 Hypotension, unspecified; B27.90 Infectious mononucleosis, unspecified without complication; Z79.899 Other long term (current) drug therapy; Z85.3 Personal history of malignant neoplasm of breast; Z90.11 Acquired absence of right breast and nipple; Z90.49 Acquired absence of other specified parts of digestive tract; Z79.82 Long term (current) use of aspirin
CPT/HCPCS: 36415; 71046; 76700; 80048; 80053; 81001; 82803; 83605; 84439; 84443; 85025; 85610; 86308; 87040; 87086; 93005; 93010; 99285; J0692; J0696; J1956; J3490; J7030; J7060

== ENCOUNTER → 2019-05-02 | Outpatient (CLI) | payer MEDICAID, MEDICARE ==
--- NOTE | 2019-05-03 09:20 | WOMENS IMAGING REPORT ---
EXAM DESCRIPTION: 3D SCREENING MAMMO LEFT COMPLETED DATE/TIME: 05/02/2019 1:28 pm REASON FOR STUDY: Z12.31 SCREENING 3D MAMMO Z12.31 ENCNTR SCREEN MAMMOGRAM FOR MALIGNANT NEOPLASM O F KRZYSZTOF COMPARISON: 2011, 2014 EXAM PARAMETERS: Standard craniocaudal and mediolateral oblique views of the breast recorded using digital acquisition and breast tomosynthesis. Read with the assistance of CAD. .[facility] - [employer] Version 9.2 LIMITATIONS: None. FINDINGS: BREAST: left Findings present which are benign by mammographic criteria. No suspicious masses, calcifications or a rchitectural distortion. Pertinent benign findings: Stable calcifications. Benign mammographic findings may include one or more of the following: Smooth masses, popcorn/rim/co arse calcifications, asymmetries, post-procedure changes, and lesions with long-standing stability. IMPRESSION: BENIGN FINDINGS. BIRADS 2. BREAST DENSITY: b. There are scattered areas of fibroglandular density. BIRAD: ASSESSMENT: 2 Benign Finding(s) RECOMMENDATION: RECOMMENDATION: ROUTINE SCREENING. COMMENT: The patient has been notified of the results by letter per SA requirements. Additional no tification policies are in place for contacting patient with suspicious or incomplete findings. Quality ID #[id number]: The [employer] recommends an annual screening mammogram for women aged 40 years or over. This facility utilizes a reminder system to ensure that all patients receive reminder letters, and/or direct phone calls for appointments. This includes reminders for routine scr eening mammograms, diagnostic mammograms, or other Breast Imaging Interventions when appropriate. Th is patient will be placed in the appropriate reminder system. TECHNICAL DOCUMENTATION: FINDING NUMBER: (1) ASSESSMENT: (1) JOB ID: [id number] [employer]- All Rights Reserved Reading location - IP/workstation name: [email or web address]
== END ==
LOC: WI 12:55
PROVIDERS: ATTEND Internal Medicine
DX: Z12.31 Encounter for screening mammogram for malignant neoplasm of breast (principal)